=== PATIENT | male | born 1945 | race Caucasian/White ===

== ENCOUNTER 2025-08-30 13:09 | Outpatient (AMB) | payer MEDICARE, SELFPAY ==
--- OUTSIDE RECORDS SUMMARY | 2025-02-14 08:30 | XMS_ITS ---
Author Organization [facility] Address [address] [address] Care Team Providers Care Corporate Webmaster Name Role Phone Gerard Frye Primary Care Provider Unavail MARY Acosta [phone] REASON FOR VISIT Lt foot injection Encounters Encounter Location Date Provider Diagnosis [facility] [address] [address] 02/14/2025 MARY COSTA Plan Of Treatment No Information Progress Notes * Hamilton IRBYDOB:1945 (79 yo M)Acc No.[id number]:02/14/2025 Consult note Patient: Hamilton HANNAH Provider: Racquel Costa DPM :1945 A ge:79 Y S ex:Male Date:02/14/2025 Address:[address] [place] [id number] Pcp:Gerard Frye Subjective: * Chief Complaints: * 1 . Lt foot injection. * Medical History: Objective: * Vitals: Therapeutic Interventions: Assessment: Plan: * Treatment: * Billing Information: * Visit Code: * Procedure Codes: * Electronic signature of BRANDON COSTA D.P.M on 08/30/2025 at 04:56 PM EST Sign off status: Pending * Provider: Racquel Costa DPM Date: 0 02/14/2025 Generated for Printi ng/Faxing/eTransmitting on: 1 10/30/2024 04:56 PM EST
[2025-08-30 13:13] VITALS: BMI 28.4
--- NOTE | 2025-08-30 13:13 | A.PHYSOV_ITS ---
Vital Signs 08/30/25 13:13 Height 5 ft 9 in Weight 192 lb BMI 28.4 Intake Visit Reasons: BACK PAIN Intake Note: Patient is a 79 year old male in office today due to increase low back pain. Allergies Sulfa (Sulfonamide Antibiotics) Allergy (Unknown, Verified 08/30/25 13:12) Unknown sulfamethoxazole (From Bactrim) Allergy (Unknown, Verified 08/30/25 13:12) Unknown trimethoprim (From Bactrim) Allergy (Unknown, Verified 08/30/25 13:12) Unknown HPI Comments Details: History of Present Illness The patient is a 79-year-old individual presenting with chronic lower back pain and lumbar radiculitis. The patient's MRI on April 13, 2024, demonstrated a right paracentral disc extrusion at the L4-L5 level with impingement upon the descending right L5 nerve root, explaining the symptomatic presentation. Bilateral L4 transforaminal injections on August 13, 2024, provided excellent pain relief, and the patient was feeling better at the time of the follow-up visit on January 06, 2025. The patient has not been seen since that visit. Only recently his pain started to return. He would like to repeat his injections before he leaves for [place] for the winter. The patient also received prednisone tapers for occasional pain exacerbations, which were reported to be highly effective. Pain Description - Onset and Timing: Chronic lower back pain with lumbar radiculitis, ongoing since before April 2024. - Quality and Character: Pain associated with right paracentral disc extrusion at L4-L5. - Primary Location: Lower back, radiating to the right L5 nerve root. - Exacerbating Factors: Occasional exacerbations requiring prednisone tapers. - Relieving Factors: Bilateral L4 transforaminal injections provided excellent relief. Results - Imaging: MRI on April 13, 2024, showed right paracentral disc extrusion at L4-L5 with impingement on the right L5 nerve root. [facility] Medical History (Updated 08/30/25 @ 13:31 by Hamilton Khan DO) Spinal stenosis, lumbar region with neurogenic claudication Lumbar radiculitis Lumbar disc herniation Surgical History (Updated 08/30/25 @ 13:15 by Linda Medina MA) Colon cancer (Unknown) History of knee surgery (Unknown) H/O shoulder surgery (Unknown) Social History (Updated 08/30/25 @ 13:16 by Linda Medina MA) Alcohol intake: current Alcohol intake frequency: 0-2 drinks per day Patient Tobacco Use Status: Never used Tobacco Use of substances other than those prescribed or required for medical reasons: No Current occupational status: retired Review of Systems Narrative Review of Systems Lower back pain, bilateral leg pain, denies change in bowel bladder habits, denies fever or chills, denies uncontrolled depression or suicidal ideation Physical Exam Exam Exam: Physical Exam Patient appears to be in no acute distress, appropriately conversant oriented. He was able to ambulates without antalgia. Lumbar extension was restricted. He was able to perform heel walk and toe walk. Dural tension signs were negative. Neurological examination of lower extremities was nonfocal. Patient demonstrated no upper motor neuron signs. Vital Signs: BMI result Body Mass Index 28.4 Assessment & Plan Assessment & Plan (1) Lumbar disc herniation: Code(s): M51.26 - Other intervertebral disc displacement, lumbar region Category: Medical (2) Lumbar radiculitis: Code(s): M54.16 - Radiculopathy, lumbar region Category: Medical (3) Spinal stenosis, lumbar region with neurogenic claudication: Code(s): M48.062 - Spinal stenosis, lumbar region with neurogenic claudication Category: Medical Plan Pain Management - Affect: Not explicitly discussed. - Analgesia: Bilateral L4 transforaminal injections and prednisone tapers for pain management. - Adverse Effects: Not explicitly discussed. - Activities of Daily Living: Not explicitly discussed. - Aberrant Drug Related Behaviors: Not explicitly discussed. Plan Patient was informed and verbally consented to the use of an ambient scribe for clinic note documentation during this visit. 1. Chronic Lower Back Pain The plan is to repeat bilateral L4 transforaminal epidural steroid injections, as they previously provided excellent pain relief. 2. Lumbar Radiculitis The patient will continue with prednisone tapers for occasional exacerbations, as they have been effective in managing symptoms. Discussion Notes We discussed the plan to repeat bilateral L4 transforaminal epidural steroid injections, which had previously provided excellent relief. The patient is aware of the need to continue prednisone tapers for occasional exacerbations. We also reviewed the MRI findings and their implications for the patient's symptoms. Risks and benefits of the procedure were discussed with the patient. Potential alternative measures were also discussed. Patient understands that the procedure is completely elective. Potential side effects associated with injectable medications were discussed. All questions were answered to the patient's satisfaction. Patient Instructions - Follow up with the clinic for scheduling the bilateral L4 transforaminal epidural steroid injections. - Continue using prednisone tapers as needed for pain exacerbations. Coding Level of Care Code Est Pt Level 3 (18187) Complex visit Add On G2211 Diagnoses Lumbar disc herniation M51.26 Lumbar radiculitis M54.16 Spinal stenosis, lumbar region with neurogenic claudication M48.062
--- OUTSIDE RECORDS SUMMARY | 2025-08-30 16:56 | XMS_ITS | Patient Health Record ---
Author Organization [facility] Address [address] [facility] [address] [place] [address] Care Team Providers Care Centerless Grinding Machine Adjuster Name Role Phone Ghanshyamshamika Gerard Primary Care Provider Unavail able MARY PUENTE Unavailable [phone] Allergies Allergen (clinical drug ingredient) Drug/Non Drug Allergy documented on EMR Reaction Allergy Type Onset Date Status sulfamethoxazole / trimethoprim Bactrim Unknown Drug Allergy Active celecoxib Celebrex Unknown Drug Allergy Active Substance with sulfonamide structure and antibacterial mechanism of action (substance) Sulfa Antibiotics Unknown Drug Allergy A ctive Reason For Referral No Information Medications Medication SIG (Take, Route, Frequency, Duration) Notes Start Date End Date Status Aspirin Adult Low Dose 81 MG 1 tablet Orally Once a day Active Clopidogrel Bisulfate 75 MG 1 tablet Orally Once a day Active Tamsulosin HCl 0.4 MG 1 capsule Orally Once a day Active dexAMETHasone (LA) inject 0.5ml into the vein once for 1 dose Active Ondansetron HCl 4 MG 1 tablet Orally q8h PRN nausea; Duration: 10 days 08/07/2020 Active hydrOXYzine Pamoate 25 MG TAKE 1 CAPSULE BY MOUTH EVERY 8 HOURS NEEDED Active Metoprolol Tartrate 25 MG 1 tablet with food Orally Twice a day Active Omeprazole 20 MG 1 capsule 30 minutes before morning meal Orally Once a day Active Rosuvastatin Calcium 20 MG 1 tablet Orally Once a day Active Problems Problem Type SNOMED Code ICD Code Onset Dates Problem Status W/U Status Risk Notes Problem Localized, primary osteoarthritis of the ankle and/or foot (301103068) Primary osteoarthrit is, right ankle and foot (M19.071) Active confirmed Problem Localized, primary osteoarthritis of the ankle and/or foot (157412100) Primary osteoarthrit is, left ankle and foot (M19.072) Active confirmed Problem Acquired hallux rigidus (5619999) Hallux rigidus of right foot (M20.21) Active confirmed Plan Of Treatment Pending Test Test Name Order Date X ray : Foot, right 3v 01/09/2021 DRAIN/INJECT, SMALL JOINT/BURSA 01/10/20 21 DRAIN/INJECT, SMALL JOINT/BURSA 04/26/20 20 DRAIN/INJECT, SMALL JOINT/BURSA 07/10/20 20 Insurance Providers Payer Name Payer Address Payer Phone Subscriber Number Group Number Insured Name Patient Relationship to Insured Coverage Start Date Coverage End Date [facility] [address] [place], [place] [phone] [id number] Hamilton Hudson Self - patient is the insured Medications Administered Medication Instructions Date of Administration Dosage Notes Dexamethasone 07/10/2020 0.5 mL Dexamethasone 01/09/2021 0.5 mL Kenalog 04/26/2020 1 mL Kenalog 07/10/2020 0.5 mL Kenalog 01/09/2021 0.5 mL Medical (General) History Medical History History ICD Code CAD hyperlipidemia GERD BPH erectile dysfunction obstructive sleep apnea alcohol abuse PTSD 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
--- OUTSIDE RECORDS SUMMARY | 2025-08-30 16:56 | XMS_ITS | Patient Health Record ---
Author Organization [facility] Address [address] [place] [address] Care Team Providers Care Retail Client Manager Name Role Phone Ike Pan MD Primary Care Provider Manjit Aguiar Unavailable [phone] Reason For Referral No Information Medications Medication SIG (Take, Route, Frequency, Duration) Notes Start Date End Date Status Omeprazole 20 MG 1 capsule Orally Onc e a day; Duration: 30 day(s) Active Medrol (Diego) 4 MG as directed Orally d ose diego take as directed; Duration: as needed 06/26/2015 Active Clotrimazole-Betamethason e 1-0.05 % APPLY TO AFFECTED AREA TWICE A DAY External; Duration: 30 Not-Taking Lamisil 250 250 MG 1 Tab Oral Daily; Duration: 90 03/15/2013 Not-Taking Ibuprofen 800 MG 1 tablet every Orall y Three times a day; Duration: 30 days 06/23/2014 Not-Taking Simvastatin 20 MG APPLY TO AFFECTED AR EA TWICE A DAY Oral; Duration: 30 Active Social History Tobacco Use: Social History Observation Description Date Details (start date - stop date) Never Smoker NA - NA Tobacco Use/Smoking Question Answer Notes Are you a: nonsmoker Additional Findings: Tobacco Non-User Current no n-smoker Alcohol Screen Question Answer Notes Did you have a drink containing alcohol in the p ast year? Yes Points 0 Interpretation Negative Tobacco use other than smoking: Question Answer Notes Are you an other tobacco user? No Problems Problem Type SNOMED Code ICD Code Onset Dates Problem Status W/U Status Risk Notes Problem Acquired hallux valgus (39499348) Hallux valgus (acquired), right foot (M20.11) Active confirmed Problem Neuralgia (74049811) Neuralgia and neuritis, unspecified (M79.2) Active confirmed Plan Of Treatment Pending Test Test Name Order Date X ray : Foot, left 2V 10/16/2015 *Liver Function Test (LFT) 03/15/2013 X ray : Foot, left 3V 06/15/2014 X ray : Foot, left 3V 03/15/2013 X ray : Foot, right 3V 11/05/2017 92784-Usoy Destruction, -03/14/2014 25049-Bgdy Destruction, -06/15/2014 33094-Paqf Destruction, -12/06/2013 26737-Lszxspbu Plate 03/14/2014 29184-Hjnqkgeg Plate 12/06/2013 17576, A3951-YAHAM/INJECT, JOINT/BURSA 0 06/15/2014 77510, L8281-GBIMK/INJECT, JOINT/BURSA 0 11/05/2017 64158, M8767-RLUUW/INJECT, JOINT/BURSA 0 02/10/2019 43044,N8904-UKN TENDON SHEATH/LIGAMENT 0 10/25/2015 54839, J0702- Neuroma/Injection 06/15/20 14 54754, J0702- Neuroma/Injection 09/07/20 14 77069, J0702- Neuroma/Injection 01/13/20 15 57762, J0702- Neuroma/Injection 06/26/20 15 57943, J0702- Neuroma/Injection 10/11/19 16 Insurance Providers Payer Name Payer Address Payer Phone Subscriber Number Group Number Insured Name Patient Relationship to Insured Coverage Start Date Coverage End Date [employer] [address] [place], [place] [address] [id number] Hamilton Hudson Self - patient is the insured Medical (General) History Medical History History ICD Code chicken pox measles mumps Surgical History Surgery Date(Month/Year) right shoulder surgery 2011 colon surgery 2007 right knee surgery 2012 right knee replacement 08/25/2015 Hospitalization History Reason Date(Month/Year) [facility] admitted for heart a ttack 12/14/2018
--- OUTSIDE RECORDS SUMMARY | 2025-08-30 16:56 | XMS_ITS ---
Author Name [facility] Organization Unknown Care Team Organization Name Specialty Phone Email Start Date End Da te [facility] Gerard Pollock Primary Care 02/10/2023 [facility] Termed, PROVIDER Primary Care 08/13/202205/06
== END 2025-08-30 13:31 | disposition home or self-care (01) ==
LOC: HO.HPHYS 13:09
PROVIDERS: PCP Physician Assistant Medical; Visit Provider Physical Medicine & Rehabilitation
DX: M51.26 Other intervertebral disc displacement, lumbar region (principal); M54.16 Radiculopathy, lumbar region; M48.062 Spinal stenosis, lumbar region with neurogenic claudication
CPT/HCPCS: 99213; G2211

== ENCOUNTER → 2025-08-30 13:09 | Outpatient (BNVA) | payer MEDICARE, SELFPAY | PROVIDERS: PCP Physician Assistant Medical; Visit Provider Physical Medicine & Rehabilitation | DX: M48.062 Spinal stenosis, lumbar region with neurogenic claudication (principal); M51.16 Intervertebral disc disorders with radiculopathy, lumbar region; G89.29 Other chronic pain | CPT/HCPCS: 99212 ==

== ENCOUNTER 2025-09-09 08:02 | Outpatient (REF) | payer MEDICARE, SELFPAY | END 2025-09-09 08:03 | disposition home or self-care (01) | LOC: HO.HPHYSR 08:02 | PROVIDERS: PCP Physician Assistant Medical; Visit Provider Physical Medicine & Rehabilitation | DX: M54.16 Radiculopathy, lumbar region (principal) | CPT/HCPCS: 64483; J2003; J3301; Q9967 ==

== ENCOUNTER 2025-09-09 08:02 | Outpatient (AMB) | payer MEDICARE, SELFPAY ==
--- NOTE | 2025-09-09 08:02 | A.PHYSOV_ITS ---
Vital Signs 09/09/25 08:03 Height 5 ft 9 in Weight 192 lb BMI 28.4 BP 149/84 H Pulse 67 Intake Visit Reasons: Bilateral Lumbar Transforaminal Epidural L4 Intake Note: Patient is a 79 year old male in office today for bilateral L4 transforaminal epidural injection. Allergies Sulfa (Sulfonamide Antibiotics) Allergy (Unknown, Verified 09/09/25 08:02) Unknown sulfamethoxazole (From Bactrim) Allergy (Unknown, Verified 09/09/25 08:02) Unknown trimethoprim (From Bactrim) Allergy (Unknown, Verified 09/09/25 08:02) Unknown [facility] Medical History Spinal stenosis, lumbar region with neurogenic claudication Lumbar radiculitis Lumbar disc herniation Surgical History Colon cancer (Unknown) History of knee surgery (Unknown) H/O shoulder surgery (Unknown) Social History Alcohol intake: current Alcohol intake frequency: 0-2 drinks per day Patient Tobacco Use Status: Never used Tobacco Use of substances other than those prescribed or required for medical reasons: No Current occupational status: retired Physical Exam Vital Signs: Last Vital Signs Pulse 67 09/09/25 08:03 BP 149/84 H 09/09/25 08:03 BMI result Body Mass Index 28.4 Office Procedures Procedure Details: Procedure performed: Bilateral transforaminal epidural steroid injection Preop diagnosis: Lumbar radiculitis Postop diagnosis: The same Anesthesia: Local After informed consent was obtained, patient was placed on the procedure table in a prone position. Skin over lumbosacral area was prepped and draped in usual sterile manner. Right L4 pedicle was visualized utilizing fluoroscopy. 5 inch 22 gauge spinal needle was introduced percutaneously and advanced towards the pedicle at about 6 o'clock position. Once level of neural foramina was reached, needle placement was verified utilizing 3 cc of Omnipaque contrast solution. Excellent flow through the neural foramina and epidural spread was identified without evidence of vascular uptake. Total volume of 6 cc containing 2 cc of 1% lidocaine, 40 mg of triamcinolone and normal saline solution were injected after negative aspiration for blood and cerebrospinal fluid. Identical procedure was repeated on the opposite side. Radiation exposure was documented in the chart. Lumbar transforaminal Epidural Steroid Inj- use with FL Gd: 33637 - Single (Bilateral procedure) Procedure code (CPT) selection complete Office Meds Kenalog 40 mg/mL suspension for injection Performing Provider: Hamilton Khan DO Performing Location: [facility] Administered by: Hamilton Kahn DO on 09/09/25 08:24 Dose Route Admin Location Dispensed Lot Number Expiration Date [facility] Forge Operator Helper 80 mg epidural 2 mL [id number] [employer] Total Dispensed Waste 2 mL 0 % lidocaine (PF) 10 mg/mL (1 %) injection solution Performing Provider: Hamilton Khan DO Performing [facility] Administered by: Hamilton Khan DO on 09/09/25 08:24 Dose Route Admin Location Dispensed Lot Number Expiration Date [facility] Forge Operator Helper 50 mg epidural 5 mL [id number] [place] [employer] Total Dispensed Waste 5 mL 0 % Omnipaque 300 300 mg iodine/mL intravenous solution Performing Provider: Hamilton Khan DO Performing Location: [facility] Administered by: Hamilton Khan DO on 09/09/25 08:24 Dose Route Admin Location Dispensed Lot Number Expiration Date [facility] Forge Operator Helper 3 mL epidural 10 mL [id number] [facility] Total Dispensed Waste 10 mL 70 % Assessment & Plan Assessment & Plan (1) Lumbar radiculitis: Code(s): M54.16 - Radiculopathy, lumbar region Category: Medical Plan: Injection Plan Injection Orders: Orders FL Gd Lumbar Transforaminal In Today M54.16 - Radiculopathy, lumbar region AMB Lumbar transforaminal Epidural Steroid Injection Today M54.16 - Radiculopathy, lumbar region Coding Level of Care Code Procedure Only Diagnoses Lumbar radiculitis M54.16 CPT Codes Lumbar transforaminal Epidural Steroid I - CPT TRANSFORM: 11031 - SingleBilateral procedure ([id number])
[2025-09-09 08:03] VITALS: BP 149/84; PULSE 67; BMI 28.4
--- OUTSIDE RECORDS SUMMARY | 2025-09-09 08:13 | XMS_ITS | Encounter Summary ---
Author Organization [facility] [employer] [facility] Prior to 08/06/2024 Address [address] [place] [address] Care Team Providers Care Maritime Engineer Name Role Phone Jarod Mullins MD Primary Care Provider Tracie Esa Conn MD Primary Care Provider Unavail able Ike Pan MD Primary Care Provider [phone] Adonay Pryor MD Unavailable [phone] Alix Castro PA-C Unavailable Unavailab Gerard Valero PA-C Primary Care Provider [phone] Trish Lawrence DNP Unavailable [phone] Encounter Details Date Type Department Care Team Description 10/28/2013 [facility] Medical Records [address] [place] [address] Von Holder MD Social History Tobacco Use Types Packs/Day Years Used Date Smoking Tobacco: Never Cigars Comments:Only an occasional cigar ,about once q 2 months Alcohol Use Standard Drinks/Week Comments Yes 0 (1 standard drink = 0.6 oz pure alcohol) About 20 beers per week. Advised to cut back particularly as he needs statins Sex Assigned at Date Recorded Not on file Job Start Date Occupation Industry Not on file Not on file Not on file documented as of this encounter Plan of Treatment Not on file documented as of this encounter Procedures Procedure Name Priority Date/Time Associated Diagnosis Comments OUTSIDE HOLTER MONITOR Routine 10/28/2013 documented in this encounter Results * OUTSIDE HOLTER MONITOR (10/28/2013) Provider Default CARDIOLOGY documented in this encounter Visit Diagnoses Not on filedocumented in this encounter Care Teams Maritime Engineer Relationship Specialty Start Date End Date Jarod Mullins MD PCP - General 04/21/07 10/05/14 Esa Burnham MD PCP - General Internal Medicine 02/20/15 07/04/15 Ike Pan MD [address] [place] [address] PCP - General Internal Medicine 07/05/15 03/13/21 Gerard Pollock PA-C [address] [place] [address] PCP - General Internal Medicine 03/14/21 Adonay Pryor MD [address] [facility] [address] [place] [address] Specialist Cardiovascular Disease 03/02/21 Alix Castro PA-C [address] [facility] [address] [place] [address] Cardiology 03/02/21 Trish Lawrence DNP [address] [place] [address] Specialist Cardiology 03/20/21 documented as of this encounter
--- OUTSIDE RECORDS SUMMARY | 2025-09-09 08:14 | XMS_ITS | Encounter Summary ---
Author Organization [facility] Prior to 08/06/2024 Address [address] [place] [address] Care Team Providers Care Mechanical Artist Name Role Phone Jarod Mullins MD Primary Care Provider Tracie Esa Conn MD Primary Care Provider Unavail able Ike Pan MD Primary Care Provider [phone] Adonay Pryor MD Unavailable [phone] Alix Castro PA-C Unavailable Unavailab Gerard Valero PA-C Primary Care Provider [phone] Trish Lawrence DNP Unavailable [phone] Encounter Details Date Type Department Care Team Description 01/29/2012 Digital Content Manager Report Medical Records [address] [place] [address] Jaiden Morataya MD Social History Tobacco Use Types Packs/Day [...] on file documented as of this encounter Visit Diagnoses Not on filedocumented in this encounter Care Teams Mechanical Artist Relationship Specialty Start Date End Date Jarod Mullins MD PCP - General 04/21/07 10/05/14 Esa Burnham MD PCP - General Internal Medicine 02/20/15 07/04/15 Ike Pan MD [address] [place] [address] PCP - General Internal Medicine 07/05/15 03/13/21 Gerard Pollock PA-C [address] [place] [address] PCP - General Internal Medicine 03/14/21 Adonay Pryor MD [address] [address] Specialist Cardiovascular Disease 03/02/21 Alix Castro PA-C [address] [address] Cardiology 03/02/21 Trish Lawrence DNP [address] [place] [address] Specialist Cardiology 03/20/21 documented as of this encounter
--- OUTSIDE RECORDS SUMMARY | 2025-09-09 08:14 | XMS_ITS | Encounter Summary ---
Author Organization [facility] Prior to 08/06/2024 Address [address] [place] [address] Care Team Providers Care Cinema Or Theatre Manager Name Role Phone Jarod Mullins MD Primary Care Provider Tracie Esa Conn MD Primary Care Provider Unavail able Ike Pan MD Primary Care Provider [phone] Adonay Pryor MD Unavailable [phone] Alix Castro PA-C Unavailable Unavailab Gerard Valero PA-C Primary Care Provider [phone] Trish Lawrence DNP Unavailable [phone] Reason for Visit * Reason Onset Date Comments Call From Md Office 02/21/2011 [facility] Encounter Details Date Type Department Care Team Description 02/21/2011 Telephone Adult Medicine [address] [address] Jarod Mullins MD Call From Office ([facility]) Social History Tobacco Use Types Packs/Day Years [...] on file documented as of this encounter Miscellaneous Notes * Telephone Encounter - Ina Martinez - 02/21/2011 2:37 PM EDT Lynda from [facility] called to inform Dr. Mullins that the patient has returned his 30 day cardiac event monitor and therefore they wilkl no longer be with the patient. Pleasecall if you have any questions. documented in this encounter Plan of Treatment Not on file documented as of this encounter Visit Diagnoses Not on filedocumented in this encounter Care Teams Cinema Or Theatre Manager Relationship Specialty Start Date End Date Jarod Mullins MD PCP - General 04/21/07 10/05/14 Esa Burnham MD PCP - General Internal Medicine 02/20/15 07/04/15 Ike Pan MD [address] [place] [address] PCP - General Internal Medicine 07/05/15 03/13/21 Gerard Pollock PA-C [address] [place] [address] PCP - General Internal Medicine 03/14/21 Adonay Pryor MD [address] [address] Specialist Cardiovascular Disease 03/02/21 Alix Castro PA-C [address] [address] Cardiology 03/02/21 Trish Lawrence DNP [address] [place] [address] Specialist Cardiology 03/20/21 documented as of this encounter
--- OUTSIDE RECORDS SUMMARY | 2025-09-09 08:14 | XMS_ITS | Encounter Summary ---
Author Organization [facility] Prior to 08/06/2024 Address [address] [place] [address] Care Team Providers Care Burglar Alarm Installer Name Role Phone Jarod Mullins MD Primary Care Provider Tracie Esa Conn MD Primary Care Provider Unavail able Ike Pan MD Primary Care Provider [phone] Adonay Pryor MD Unavailable [phone] Alix Castro PA-C Unavailable Unavailab Gerard Valero PA-C Primary Care Provider [phone] Trish Lawrence DNP Unavailable [phone] Encounter Details Date Type Department Care Team Description 03/02/2013 Ell Teacher Report Medical Records [address] [place] [address] Jaiden Morataya MD Social History Tobacco Use [...] on filedocumented in this encounter Care Teams Burglar Alarm Installer Relationship Specialty Start Date End Date Jarod Mullins MD PCP - General 04/21/07 10/05/14 Esa Burnham MD PCP - General Internal Medicine 02/20/15 07/04/15 Ike Pan MD [address] [place] [address] PCP - General Internal Medicine 07/05/15 03/13/21 Gerard Pollock PA-C [address] [place] [address] PCP - General Internal Medicine 03/14/21 Adonay Pryor MD [address] [address] Specialist Cardiovascular Disease 03/02/21 Alix Castro PA-C [address] [address] Cardiology 03/02/21 Trish Lawrence DNP [address] [place] [address] Specialist Cardiology 03/20/21 documented as of this encounter
--- OUTSIDE RECORDS SUMMARY | 2025-09-09 08:14 | XMS_ITS | Encounter Summary ---
Author Organization [facility] Prior to 08/06/2024 Address [address] [place] [address] Care Team Providers Care Server Security Administrator Name Role Phone Adonay Pryor MD Unavailable Alix Castro PA-C Unavailable Unavailab Gerard Valero PA-C Primary Care Provider [phone] Trish Lawrence DNP Unavailable [phone] Encounter Details Date Type Department Care Team Description 03/21/2021 Orders Only Medical Records [address] [place] [id number] Isaac Connell MD [address] [place] [address] [id number] Social History Tobacco Use Types Packs/Day Years Used Date Smoking Tobacco: Never Cigars Smokeless Tobacco: Never Comments:Only an occasional cigar ,about once q 2 months Alcohol Use Standard Drinks/Week Comments Yes 0 (1 standard drink = 0.6 oz pur e alcohol) couple days a week Sex Assigned at Date Recorded Not on file Job Start Date Occupation Industry Not on file Not on file Not on file documented as of this encounter Progress Notes * Ramona Connell MD - 04/01/2021 12:03 PM EDT Dear Hamilton,The polyp(s) that were removed during your colonoscopy were precancerous, but benign. Fortunately, we removed them and therefore, they will not cause any more problems in the future. Based on the number, the size, and the features of the polyp(s) removed, I recommend a follow-up colonoscopy in 5 years. Before, the 5 years are due, we will send you a reminder in the mail asking you to contact our office to have the colonoscopy scheduled. I would like to personally thank you for allowing us to take care of you. Please don't hesitate to call us for any questions or concerns. Regards, Von Connell MD Board Certified Gastroenterology and Internal Medicine Transplant Hepatology [facility] documented in this encounter Plan of Treatment Not on file documented as of this encounter Procedures Procedure Name Priority Date/Time Associated Diagnosis Comments OUTSIDE PATHOLOGY Routine 03/19/2021 documented in this encounter Results * OUTSIDE PATHOLOGY (03/19/2021) Isaac Connell MD OUTSIDE LAB documented in this encounter Visit Diagnoses Not on filedocumented in this encounter Care Teams Server Security Administrator Relationship Specialty Start Date End Date Gerard Pollock PA-C [address] [place] [address] PCP - General Internal Medicine 03/14/21 Adonay Pryor MD 300 [facility] [address] [place] [address] Specialist Cardiovascular Disease 03/02/21 Alix Castro PA-C 300 [facility] [address] [place] [address] Cardiology 03/02/21 Trish Lawrence DNP [address] [place] [address] Specialist Cardiology 03/20/21 documented as of this encounter
--- OUTSIDE RECORDS SUMMARY | 2025-09-09 08:14 | XMS_ITS | Encounter Summary ---
Author Organization [facility] Prior to 08/06/2024 Address [address] [place] [address] Care Team Providers Care Payroll Examiner Name Role Phone Ike Pan MD Primary Care Provider [phone] Adonay Pryor MD Unavailable Alix Castro PA-C Unavailable Unavailab Gerard Valero PA-C Primary Care Provider [phone] Trish Lawrence DNP Unavailable [phone] Reason for Visit * Reason Onset Date Comments other 03/12/2021 left shoulder pa in Encounter Details Date Type Department Care Team Description 03/12/2021 Telephone Cardio PVC POC [address] [id number] Adonay Pryor MD 300 [facility] [address] [place], [place] [phone] other (left shoulder pain ) Social History Tobacco Use Types Packs/Day Years [...] encounter Miscellaneous Notes * Telephone Encounter - Trish Lawrence DNP,KATIE - 03/12/2021 12:09 PM EDT Call to pt's daughter. Left shoulder discomfort somewhat reminiscent of his symptoms prior to his SD. Unclear if this is with exertion or with swinging is vague for his daughter. But no shoulder painwith walking. Some SOB on exertion with walking [place] without a golf cart. Apt with me 03/22 7:40 Exercise Stress test ordered but not to be done before his office visit with me. He has decided to stay on his plavix after his colonoscopy. If symptoms stable--ok for colonoscopy as planned. * Telephone Encounter - Janene Guadarrama - 03/12/2021 10:59 AM EDT Pt daughter calling to state pt has been having left shoulder pain when golfing for the last few weeks. The pain is located in shoulder and occurs on/off during the golf game. No pain located in chest, no radiating, no nausea, no sweating. This symptom happened to pt a few years ago when pt had STEMI December 2018. Shoulder pain is not occurring at any other time or with any other activity. Pt ridesstationary bike does have SOB with this activity which is a new symptom. Daughter requesting pt to be seen in office sooner than April Appt. * Telephone Encounter - Narcisa Silveira - 03/12/2021 10:41 AM EDT 03/12/21: CR pt's daug stated that pt has been complaining of left shoulder pain when golfing. Pt's daug Gay can be reached at [phone]. 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 Expected: 03/12/2021, Expires: 03/12/2022 documented as of this encounter Visit Diagnoses Diagnosis 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
--- OUTSIDE RECORDS SUMMARY | 2025-09-09 08:14 | XMS_ITS | Encounter Summary ---
Author Organization [facility] Prior to 08/06/2024 Address [address] [place] [address] Care Team Providers Care Industrial Renderer Name Role Phone Ike Pan MD Primary Care Provider [phone] Adonay Pryor MD Unavailable [phone] Alix Castro PA-C Unavailable Unavailab Gerard Valero PA-C Primary Care Provider [phone] Trish Lawrence DNP Unavailable [phone] Reason for Visit * Reason Onset Date Comments APPOINTMENT 02/09/2021 Encounter Details Date Type Department Care Team Description 02/09/2021 Telephone Gastroenterology [address] [place] [address] Isaac Connell MD [address] [place] [address] [id number] APPOINTMENT Social History Tobacco Use Types Packs/Day Years [...] file Not on file Not on file COVID-19 Exposure Response Date Recorded In the last month, have you been in contact with someone who was confirmed or suspected to have Coronavirus / COVID-19? No / Unsure 02/09/2021 9:59 AM EDT documented as of this encounter Miscellaneous Notes * Telephone Encounter - Kelsey Barrera - 02/09/2021 10:39 AM EDT Patient booked for colon on 03/19, is on blood thinners documented in this encounter Plan of Treatment Not on file documented as of this encounter Visit Diagnoses Not on filedocumented in this encounter Care Teams Industrial Renderer Relationship Specialty Start Date End Date Ike Pan MD [address] [place] [address] PCP - General Internal Medicine 07/05/15 03/13/21 Gerard Pollock PA-C [address] [place] [address] PCP - General Internal Medicine 03/14/21 Adonay Pryor MD [address] [address] Specialist Cardiovascular Disease 03/02/21 Alix Castro PA-C [address] [address] Cardiology 03/02/21 Trish Lawrence DNP [address] [place] [address] Specialist Cardiology 03/20/21 documented as of this encounter
--- OUTSIDE RECORDS SUMMARY | 2025-09-09 08:14 | XMS_ITS | Encounter Summary ---
Author Organization [facility] Prior to 08/06/2024 Address [address] [place] [address] Care Team Providers Care Resistance Machine Welder Setter Name Role Phone Adonay Pryor MD Unavailable [phone] Alix Castro PA-C Unavailable Unavailab Gerard Valero PA-C Primary Care Provider [phone] Trish Lawrence DNP Unavailable [phone] Encounter Details Date Type Department Care Team Description 04/29/2024 Medical Science Liaison Report Medical Records [address] [place] [address] Hamilton Khan DO Social History Tobacco Use Types Packs/Day Years Used Date Smoking Tobacco: Never Cigars Passive Smoke Exposure: Past Smokeless Tobacco: Never Comments:Only an occasional cigar [...] on filedocumented in this encounter Care Teams Resistance Machine Welder Setter Relationship Specialty Start Date End Date Gerard Pollock PA-C [address] [place], [place] [id number] PCP - General Internal Medicine 03/14/21 Adonay Pryor MD [address] [address] Specialist Cardiovascular Disease 03/02/21 Alix Castro PA-C [address] [place] [address] Cardiology 03/02/21 Trish Lawrence, [facility] [address] [place] [address] Specialist Cardiology 03/20/21 documented as of this encounter
--- OUTSIDE RECORDS SUMMARY | 2025-09-09 08:14 | XMS_ITS | Encounter Summary ---
Author Organization [employer] [facility] Prior to 08/06/2024 Address [address] [place] [address] Care Team Providers Care Envelope Patternmaker Name Role Phone Jarod Mullins MD Primary Care Provider Tracie Esa Conn MD Primary Care Provider Unavail able Ike Pan MD Primary Care Provider [phone] Adonay Pryor MD Unavailable [phone] Alix Castro PA-C Unavailable Unavailab Gerard Valero PA-C Primary Care Provider [phone] Trish Lawrence DNP Unavailable [phone] Encounter Details Date Type Department Care Team Description 07/28/2007 Hospital Medical Records [address] [place] [address] Von Mcclendon MD Social History Tobacco Use Types Packs/Day [...] on filedocumented in this encounter Care Teams Envelope Patternmaker Relationship Specialty Start Date End Date Jarod Mullins MD PCP - General 04/21/07 10/05/14 Esa Burnham MD PCP - General Internal Medicine 02/20/15 07/04/15 Ike Pan MD [address] [place] [address] PCP - General Internal Medicine 07/05/15 03/13/21 Gerard Pollock PA-C [address] [place] [address] PCP - General Internal Medicine 03/14/21 Adonay Pryor MD [address] [address] Specialist Cardiovascular Disease 03/02/21 Alix Castro PA-C [address] [address] Cardiology 03/02/21 Trish Lawrence DNP [address] [place] [address] Specialist Cardiology 03/20/21 documented as of this encounter
--- OUTSIDE RECORDS SUMMARY | 2025-09-09 08:14 | XMS_ITS | Encounter Summary ---
Author Organization [facility] Prior to 08/06/2024 Address [address] [place] [address] Care Team Providers Care Business Proposal Rep Name Role Phone Jarod Mullins MD Primary Care Provider Tracie Esa Conn MD Primary Care Provider Unavail able Ike Pan MD Primary Care Provider [phone] Adonay Pryor MD Unavailable [phone] Alix Castro PA-C Unavailable Unavailab Gerard Valero PA-C Primary Care Provider [phone] Trish Lawrence DNP Unavailable [phone] Encounter Details Date Type Department Care Team Description 07/31/2012 Analytical Chemist Report Medical Records [address] [place] [address] Maxwell Haas PA-C Social History Tobacco Use Types Packs/Day Years [...] on filedocumented in this encounter Care Teams Business Proposal Rep Relationship Specialty Start Date End Date Jarod Mullins MD PCP - General 04/21/07 10/05/14 Esa Burnham MD PCP - General Internal Medicine 02/20/15 07/04/15 Ike Pan MD [address] [place] [address] PCP - General Internal Medicine 07/05/15 03/13/21 Gerard Pollock PA-C [address] [place] [address] PCP - General Internal Medicine 03/14/21 Adonay Pryor MD [address] [address] Specialist Cardiovascular Disease 03/02/21 Alix Castro PA-C [address] [address] Cardiology 03/02/21 Trish Lawrence DNP [address] [place] [address] Specialist Cardiology 03/20/21 documented as of this encounter
--- OUTSIDE RECORDS SUMMARY | 2025-09-09 08:14 | XMS_ITS | Clinical Summary ---
Author Organization [facility] Address [address] [place] [address] Phone Care Team Providers Care Field Appraiser Name Role Phone Gerard Pollock Primary Care Provider [phone] Allergies Active Allergy Reactions Criticality Noted Date Comments Celecoxib Itching 08/22/2017 Sulfamethoxazole-Trimethoprim Itching 2016 Medications tamsulosin (FLOMAX) 0.4 mg 24 hr capsule Take 2 capsules (0.8 mg total) by mouth. 3 Active UNABLE TO FIND CPAP Historical (HISTORICAL CPAP) Active omeprazole (PriLOSEC) [address] capsule TAKE 1 CAPSULE BY MOUTH EVERY DAY 90 capsule 3 5 Active rosuvastatin (CRESTOR) 20 mg tablet Take 1 tablet (20 mg total) by mouth 1 (one) time each day. 90 each 3 5 Active clopidogreL (PLAVIX) 75 mg tablet TAKE 1 TABLET BY MOUTH EVERY DAY 90 tablet 1 5 Active metoprolol succinate (TOPROL-XL) 25 mg 24 hr tablet TAKE 1 TABLET BY MOUTH EVERY DAY 90 tablet 1 5 Active ticagrelor (Brilinta) 90 mg tablet Take 1 tablet (90 mg total) by mouth 2 (two) times a day. Active Active Problems Problem Noted Date Diagnosed Date Lipoma of hand 08/23/2024 Varicose veins of both lower extremities with pa in 01/20/2024 Mass of right hand 07/28/2023 Fatty liver 06/04/2022 Assessment & Plan (02/08/2025 1:34 PM EDT): Orders: Lipid panel with reflex to direct LDL; Future Comprehensive metabolic panel; Future Hemoglobin A1c; Future Ambulatory referral to Vascular Surgery; Future Hypertension 03/22/2021 Overview (06/01/2024): Last Assessment & Plan: Patient's blood pressure is well controlled. He should remain on beta-alta therapy given his underlying coronary artery disease. We will clarify the patient's medication list Assessment & Plan (06/30/2025 1:41 PM EDT): Orders: ECG 12 lead Stress echocardiogram (TTE) exercise with PRN contrast, bubble, strain, and 3D order panel; Future Assessment & Plan (02/08/2025 1:34 PM EDT): Orders: Lipid panel with reflex to direct LDL; Future Comprehensive metabolic panel; Future Hemoglobin A1c; Future Ambulatory referral to Vascular Surgery; Future Coronary artery disease invo lving [place] coronary artery of [place] heart without angina pectoris 01/07/2019 Overview (06/01/2024): inferior STEMI in December 2018 while in [place] cardiac catheterization at that time revealing normal left main, small to moderate caliber LAD with 50% and 70% lesion in the mid vessel with FRANCIE-3 flow to the mid vessel, full complement of septal physician coding specialist branches, full complement of small caliber diagonal branches, tortuous nondominant left circumflex, and mid circumflex with a lengthy 50 to 60% narrowing with FRANCIE-3 flow distally. The RCA was totally occluded from the proximal to midportion and it was ballooned and received tandem drug-eluting stents with postdilatation to high atmospheres. nuclear stress test in February 2019 to evaluate for residual ischemia where he was able to exercise for 8 minutes, achieving 89% of his MPHR with no ischemia and normal LVEF Last Assessment & Plan: The patient comes in today for a triage visit given left shoulder discomfort. Is not exertional. He had these exact symptoms 2 years ago at which point he had a negative exercise nuclear stress test to a high MET workload. Prior to developing his shoulder discomfort, he is able to move 2 yards of loam without cardiorespiratory symptoms but did feel shoulder discomfort every time he does his shoveling suggesting MSK etiology. Further, he had a cortisone injection yesterday after evaluation by a shoulder specialist he feels as though he has tendinitis in his shoulder already feels better. At this time, we will defer ischemic evaluation. He plans to see his shoulder specialist in about 3 weeks. He will send me a Ometriat message at that time to update me on how his shoulder is feeling and the plans from the orthopedic team. If this discomfort has not resolved, would recommend an exercise stress echocardiogram to evaluate for ischemia. This would then give 2 different modalities of ischemic evaluation with prior nuclear stress test. The patient understands and agrees. He does know to seek emergency medical attention for any change or progressive symptoms. After the patient left the office, I noticed that his metoprolol has fallen off of his medication list. Ometriat message sent to the patient to clarify his med list. 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 02/06/2018 Arthritis of first metatarso phalangeal (MTP) joint of right foot 02/06/2018 Benign non-nodular prostatic hyperplasia with lower urinary tract symptoms 08/06/2016 Assessment & Plan (02/08/2025 1:34 PM EDT): Orders: Lipid panel with reflex to direct LDL; Future Comprehensive metabolic panel; Future Hemoglobin A1c; Future Ambulatory referral to Vascular Surgery; Future Alcohol abuse 06/21/2016 PTSD (post-traumatic stress disorder) 06/21/2016 Erectile dysfunction 04/29/2013 Decreased hearing 12/19/2011 GERD (gastroesophageal reflux disease) 2 Hyperlipemia 03/25/2008 Overview (06/01/2024): Last Assessment & Plan: LDL improved on intensified statin therapy of Crestor alternating 20 and 30 mg every other day. Continue the same Assessment & Plan (02/08/2025 1:34 PM EDT): Orders: Lipid panel with reflex to direct LDL; Future Comprehensive metabolic panel; Future Hemoglobin A1c; Future Ambulatory referral to Vascular Surgery; Future Encounters Date Type Department Care Team Description 08/02/2025 Results Follow-Up [facility] Cardiology [facility] [address] [place] [address] Suzy Pitts NP 07/26/2025 1:30 PM EDT Ancillary Procedure [facility] [address] [place] [id number] Primary hypertension; Coronary artery disease involving [place] coronary artery of [place] heart with other form of angina pectoris (CMS/HCC V24) 06/30/2025 1:00 PM EDT Office Visit [facility] [address] [place] [address] Adonay Pryor MD Primary hypertension (Primary Dx); Coronary artery disease involving [place] coronary artery of [place] heart with other form of angina pectoris (CMS/HCC V24) from Last 3 Months Immunizations Immunization Administration Dates Next Due Influenza Quadravalent, MDCK , 0.5ml, preservative free (Flucelvax) 6mo and older 07/07/2019 Influenza trivalent, 0.5mL ( Fluad) 65yo and older 07/11/2025 Influenza trivalent, 0.5mL ( Fluzone High-dose) 65yo and older 07/12/2024,07/15/2023,08/13/2022,07/25,07/08/2018,07/14/2017,08/06/2016 ,10/07/2013 Influenza, Unspecified 07/16/2021,07/07/2019 Pfizer Covid-19 Bivalent, Or iginal + Ba.1 (Non-US Trademark COMIRNATY Bivalent) 07/18/2022 [employer] SARS-CoV-2 COVID-19, mRNA, LNP-S, preservative free 07/30/2021 Pneumococcal conjugate 13 va lent (Prevnar 13, PCV13) 2mo and older 12/15/2015 Pneumococcal polysaccharide 23 valent (Pneumovax 23) 2yo and older 10/07/2013 Tdap Tetanus diptheria acell ular pertussis (Boostrix; Adacel) 7yo and older 07/26/2024,10/07/2013 Zoster recombinant (Shingrix ) 19yo and older 08/09/2024 Surgical History Surgery Date Site/Laterality Comments COLONOSCOPY 03/02/2003 PROCEDURE: HISTORICAL COLONOSCOPY; COMMENT: up to cecum, good preparation, hemorrhoids, 5mm polyp removed (Tubular adenoma) COLONOSCOPY 07/03/2007 PROCEDURE: HISTORICAL COLONOSCOPY; COMMENT: Up to cecum, good preparation, small polyp-mid sigmoid (adenocarcinoma intramucosal). Mass distal sigmoid (adenocarcinoma, invasive, moderately differentiated) COLONOSCOPY 01/29/2012 PROCEDURE: HISTORICAL COLONOSCOPY; COMMENT: Hood; normal post-op; [facility] UPPER GASTROINTESTINAL ENDOSCOPY 01/29/2012 PROCEDURE: [facility] UPPER GI ENDOSCOPY PERFORMED; COMMENT: Hood; normal; [facility] OTHER SURGICAL HISTORY 07/28/2007 PROCEDURE: [facility] COLECTOMY PARTIAL W/ANASTOMOSIS; COMMENT: Adenoma sigmoid colon COLONOSCOPY 02/21/2015 PROCEDURE: HISTORICAL COLONOSCOPY; COMMENT: normal post op appearance. OTHER SURGICAL HISTORY 2009 PROCEDURE: HISTORY OTHER; COMMENT: r rotator cuff TOTAL KNEE ARTHROPLASTY 2014 Right PROCEDURE: [facility] ARTHRP KNE CONDYLE&PLATU MEDIAL&LAT COMPARTMENTS; COMMENT: pelon COLONOSCOPY 09/01/2017 PROCEDURE: HISTORICAL COLONOSCOPY; COMMENT: two polyps: Right colon polyp was normal mucosa; left colon polyp was tubular adenoma. Medical History Medical History Date Comments Hyperlipemia 03/25/2008 DX:Hyperlipemia History of malignant neoplasm of colon 07/03/2007 DX:History of malignant neoplasm of colon; COMMENT: small polyp-mid sigmoid (adenocarcinoma intramucosal). Mass distal sigmoid (adenocarcinoma, invasive, moderately differentiated). Possible liver/lung metastasis.Pt underwent resection on 07/28/[address] Mcclendon. GERD (gastroesophageal reflux disease) 12/19/2011 DX:GERD (gastroesophageal reflux disease) Erectile dysfunction 04/29/2013 DX:Erectile dysfunction Decreased hearing 12/19/2011 DX:Decreased h earing Sleep apnea 12/15/2015 DX:Sleep apnea Family History Medical History Relation Name Comments Other: around age of 65 Father not biological father Diabetes Mother CABG Sister 1 Colon cancer Neg Hx Relation Name Status Comments Brother 1 Alive identical twin Brother 2 Alive 1/2 sib Father ? Mother (Age 92) Sister 1 Alive 1/2 sib Sister 2 Alive s/b Social History Tobacco Use Types Packs/Day Years Used Date Smoking Tobacco: Never Smokeless Tobacco: Never Tobacco Cessation:Counseling Given: Not Answered Alcohol Use Standard Drinks/Week Comments Yes 0 (1 standard drink = 0.6 oz pur e alcohol) Sex and Gender Information Value Date Recorded Sex Assigned at Not on file Legal Sex Male 1:45 AM EST Gender Identity Not on file Sexual Orientation Not on file Obstetrics History Last Filed Vital Signs Vital Sign Reading Time Taken Comments Blood Pressure 134/84 06/30/2025 1:05 PM EDT Pulse 55 06/30/2025 1:05 PM EDT Temperature 36.3 C (97.4 F) 02/08/2025 1:06 PM EDT Respiratory Rate 15 02/08/2025 1:06 PM EDT Oxygen Saturation 98% 06/30/2025 1:05 PM EDT Inhaled Oxygen Concentration - - Weight 88.2 kg (194 lb 6.4 oz) 06/30/2025 1:05 P M EDT Height 175.3 cm (5' 9 ) 06/30/2025 1:05 PM EDT Body Mass Index 28.71 06/30/2025 1:05 PM EDT Plan of Treatment Health Maintenance Due Date Last Done Comments Hepatitis A Vaccines (1 of 2 - Risk 2-dose series) 1964 Falls Risk Assessment 09/14/2022 Social Influencers of Health Screening 09/14/2022 COVID-19 Vaccine ( season) 2025 07/30/2021, 01/26/2021, 01/04/2021 Medicare Annual Wellness Visit 02/08/2026 02/08/2025 Hypertension/CHF/CAD Annual BMP Blood Test 02/10/2026 02/10/2025, 01/15/2024 Cholesterol Screening (Lipid Panel) 02/10/2030 02/10/2025, 01/15/2024 Colorectal Cancer Screening: Colonoscopy 03/19/2031 03/19/2021 DTaP,Tdap,and Td Vaccines (3 - Td or Tdap) 07/26/2034 07/26/2024, 10/07/2013 Hepatitis C Screening Completed 10/11/2013 Pneumococcal Vaccine: 50+ Years Completed 12/15/2015, 10/07/2013 Zoster Vaccines Discontinued 08/09/2024 Depression Screening Completed 02/08/2025 Influenza Vaccine Completed 07/11/2025, , 07/12/2024, Additional history exists HIB Vaccines Aged Out No longer eligi ble based on patient's age to complete this topic HPV Vaccines Aged Out No longer eligi ble based on patient's age to complete this topic Hepatitis B Vaccines Aged Out No long er eligible based on patient's age to complete this topic IPV Vaccines Aged Out No longer eligi ble based on patient's age to complete this topic MMR Vaccines Aged Out No longer eligi ble based on patient's age to complete this topic Meningococcal ACWY Vaccine Aged Out N o longer eligible based on patient's age to complete this topic Meningococcal B Vaccine Aged Out No l onger eligible based on patient's age to complete this topic RSV Immunization Adult Patients Discontinued RSV Immunization Patients Under 20 months Aged Out No longer eligible based on patient's age to complete this topic Varicella Vaccines Aged Out No longer eligible based on patient's age to complete this topic Procedures Procedure Name Priority Date/Time Associated Diagnosis Comments STRESS ECHOCARDIOGRAM EXERCISE WITH CONTRAST Routine 07/26/2025 2:32 PM EDT Primary hypertension Coronary artery disease involving [place] coronary artery of [place] heart with other form of angina pectoris (CMS/HCC V24) ECG 12-LEAD Routine 06/30/2025 1:08 PM EDT Primary hypertension COMPREHENSIVE METABOLIC PANEL Routine 02/10/2025 9:12 AM EDT Routine general medical examination at a health care facility Other hyperlipidemia Benign non-nodular prostatic hyperplasia with lower urinary tract symptoms Coronary artery disease involving [place] coronary artery of [place] heart without angina pectoris Fatty liver Primary hypertension Obstructive sleep apnea syndrome Abnormal level of blood mineral Varicose veins of both lower extremities with pain LIPID PANEL WITH REFLEX TO DIRECT LDL Routine 02/10/2025 9:12 AM EDT Routine general medical examination at a health care facility Other hyperlipidemia Benign non-nodular prostatic hyperplasia with lower urinary tract symptoms Coronary artery disease involving [place] coronary artery of [place] heart without angina pectoris Fatty liver Primary hypertension Obstructive sleep apnea syndrome Abnormal level of blood mineral Varicose veins of both lower extremities with pain COLONOSCOPY Routine 03/19/2021 HEPATITIS C SCREENING Routine 10/11/2013 from Last 3 Months or Most Recently Relevant to Health Maintenance Results * STRESS ECHOCARDIOGRAM EXERCISE WITH CONTRAST (07/26/2025 2:32 PM EDT) Target HR 122 bpm CV PACS STRESS Exercise/injec tion duration (min) 5 min CV PACS STRESS Exercise/injec tion duration (sec) 59 sec CV PACS STRESS Estimated workload 7.1 METS CV PACS STRESS Angina Index 0 CV PACS STRESS Baseline HR 67 bpm CV PACS STRESS Peak HR 130 bpm CV PACS STRESS Percent HR 91 % CV PACS STRESS Max HR Percent 90 % CV PA CS STRESS Baseline SBP 118 mmHg CV PACS STRESS Baseline DBP 60 mmHg CV PACS STRESS Peak SBP 172 mmHg CV PACS STRESS Peak DBP 76 mmHg CV PACS STRESS Rate Pressure Product 22,360.0 mmHg*bpm CV PACS STRESS Anatomical Region Laterality Modality Ultrasound Narrative 08/02/2025 9:08 AM EDT Post Stress Impression: The study is negative and shows no echocardiographic evidence of ischemia. Mild basal inferior hypokinesis at rest and stress suggestive of prior infarct or scar. No new wall motion abnormalities appeared at stress (as described below in the wall motion diagram). Stress ECG was normal. Exercise stress test was performed. Patient reported no symptoms during the stress test. Exercise capacity was average. Normal blood pressure response. Atrial and ventricular ectopy noted on stress testing. Left Ventricle Left ventricle cavity size is normal. Systolic function is normal with an ejection fraction of 55-60%. Small basilar inferior hypokinetic regional LV wall motion abnormality. Right Ventricle Systolic function is normal. Study Details Overall the study quality was adequate and technically difficult. Definity contrast was given to enhance imaging. Stress Findings A Dionisio protocol stress test was performed. Overall, the patient's exercise capacity was average. Total stress time was 5 min and 59 sec. The patient experienced no angina during the test. The test was stopped because the patient experienced fatigue. The patient requested the test to be stopped. The patient's hemodynamic response was adequate for diagnosis. Blood pressure demonstrated a normal response. Heart rate demonstrated a normal response. The patient reported no symptoms during the stress test. ECG 79-year-old male with coronary artery disease status post ADDIE to the RCA in 2019 with residual disease, now with dyspnea on exertion; rule out ischemia. Cardiac risk factors include hypertension, hyperlipidemia, obesity, age, and family history. Last dose of Toprol was the morning of the test; no calcium channel blockers or nitrates. Baseline ECG shows sinus rhythm with first-degree AV block. Arrhythmias during stress: premature ventricular contractions (PVCs), increasing in frequency at peak exercise, including occasional couplets. There is no significant ST abnormalities during stress. Arrhythmias during recovery: frequent premature atrial contractions (PACs) including isolated PACs as well as short atrial runs in early recovery; frequent premature ventricular contractions (PVCs) multifocal with occasional couplets noted more frequently in early recovery. The result of the stress ECG was negative for ischemia. Echo Post Stress Left ventricular cavity size decreased from baseline. Left ventricular systolic function improved from baseline. Systolic function is hyperdynamic with an ejection fraction over 70%. No new wall motion abnormalities appeared at stress. Nuclear Measurements The study is negative and shows no echocardiographic evidence of ischemia. Wall Scoring Baseline Score Index: 1.06 The following segments are hypokinetic: basal inferior. All other segments are normal. Wall Scoring Peak Stress Score Index: 1.06 The following segments are hypokinetic: basal inferior. The following segments are hyperkinetic: basal anterior, basal anteroseptal, basal inferoseptal, basal inferolateral, basal anterolateral, mid anterior, mid anteroseptal, mid inferoseptal, mid inferior, mid inferolateral, mid anterolateral, apical anterior, apical septal, apical inferior, apical lateral and apex. Procedure Note Mavis Small NP / Adonay Pryor MD - 08/02/2025 Post Stress Impression: The study is negative and shows noechocardiographic evidence of ischemia. Mild basal inferior hypokinesis atrest and stress suggestive of prior infarct or scar. No new wall motion abnormalities appeared at stress (as described belowin the wall motion diagram). Stress ECG was normal. Exercise stress test was performed. Patient reported no symptoms duringthe stress test. Exercise capacity was average. Normal blood pressureresponse. Atrial and ventricular ectopy noted on stress testing. us Adonay Pryor MD CV ECHO PROCEDURES Final Result * ECG 12 lead (06/30/2025 1:08 PM EDT) Ventricular Rate ECG 55 BPM GEMUSE Atrial Rate 55 BPM GEMUSE P-R Interval 238 ms GEMUSE QRS Duration 96 ms GEMUSE Q-T Interval 404 ms GEMUSE QTc 386 ms GEMUSE P Wave [place] 42 degrees GEMUSE R [place] 31 degrees GEMUSE T [place] 16 degrees GEMUSE ECG Interpretation Sinus bradycardia with 1st degree A-V block Inferior infarct , age undetermined Abnormal ECG When compared with ECG of 25-JUL-2020 09:26, No significant change was found Confirmed by MD Pryor Christopher ([id number]) on 06/30/2025 2:21:00 PM GEMUSE 06/30/2025 1:08 PM EDT 06/30/2025 2:21 PM EDT us Adonay Pryor MD ECG ORDERABLES Final Res ult GEMUSE * (ABNORMAL) Lipid panel with reflex to direct LDL (02/10/2025 9:12 AM EDT) Cholesterol 173 0 - 200 mg/dL LAB CHEMISTRY METHOD 02/10/2025 1:00 PM EDT [facility] Triglycerides 272(H) 0 - 150 mg/dL LAB CHEMISTRY METHOD 02/10/2025 1:00 PM EDT [facility] HDL 42 >=40 mg/dL LAB CHEMISTRY METHOD 02/10/2025 1:00 PM EDT [facility] LDL Calculated 77 0 - 100 mg/dL LAB CHEMISTRY METHOD 02/10/2025 1:00 PM EDT [facility] VLDL Cholesterol [place] 54.4 mg/dL LAB CHEMISTRY METHOD 02/10/2025 1:00 PM [facility] Non HDL Chol. (LDL+VLDL) 131 <145 mg/dL LAB CHEMISTRY METHOD 02/10/2025 1:00 PM [facility] Chol/HDL Ratio 4.1 0.0 - 4.4 LAB CHEMISTRY METHOD 02/10/2025 1:00 PM [facility] Blood Venous blood specimen / Unknown Venipuncture / Unknown 02/10/2025 9:12 AM EDT 02/10/2025 9:12 AM EDT Gerard KEITH LAB BLOOD ORDERABLES Kate vee Result [facility] [address] [place] [address], * (ABNORMAL) Comprehensive metabolic panel (02/10/2025 9:12 AM EDT) Sodium 138 133 - 145 mmol/L LAB CHEMISTRY METHOD 02/10/2025 1:00 PM [facility] Potassium 4.2 3.5 - 5.5 mmol/L LAB CHEMISTRY METHOD 02/10/2025 1:00 PM [facility] Chloride 105 96 - 110 mmol/L LAB CHEMISTRY METHOD 02/10/2025 1:00 PM [facility] CO2 26 21 - 32 mmol/L LAB CHEMISTRY METHOD 02/10/2025 1:00 PM [facility] Anion Gap 7 3 - 11 LAB CHEMISTRY METHOD 02/10/2025 1:00 PM [facility] Glucose 118(H) 70 - 100 mg/dL LAB CHEMISTRY METHOD 02/10/2025 1:00 PM [facility] BUN 14 5 - 25 mg/dL LAB CHEMISTRY METHOD 02/10/2025 1:00 PM [facility] Creatinine 0.93 0.70 - 1.30 mg/dL LAB CHEMISTRY METHOD 02/10/2025 1:00 PM [facility] eGFR 85 >=60 mL/min/1. 73m2 LAB CHEMISTRY METHOD 02/10/2025 1:00 PM [facility] Comment:Calculation based on the Chronic Kidney Disease Epidemiology Collaboration (CKD-EPI) equation refit without adjustment for race. BUN/Creatinine Ratio 15.1 LAB CHEMISTRY METHOD 02/10/2025 1:00 PM [facility] Calcium 9.3 8.5 - 10.5 mg/dL LAB CHEMISTRY METHOD 02/10/2025 1:00 PM [facility] AST (SGOT) 32 10 - 42 unit/L LAB CHEMISTRY METHOD 02/10/2025 1:00 PM [facility] ALT (SGPT) 40 10 - 60 unit/L LAB CHEMISTRY METHOD 02/10/2025 1:00 PM [facility] Alkaline Phosphatase 105 42 - 121 unit/L LAB CHEMISTRY METHOD 02/10/2025 1:00 PM [facility] Total Protein 6.8 6.0 - 8.0 g/dL LAB CHEMISTRY METHOD 02/10/2025 1:00 PM [facility] Albumin 3.8 3.2 - 5.0 g/dL LAB CHEMISTRY METHOD 02/10/2025 1:00 PM [facility] Total Bilirubin 0.7 0.0 - 1.4 mg/dL LAB CHEMISTRY METHOD 02/10/2025 1:00 PM [facility] Blood Venous blood specimen / Unknown Venipuncture / Unknown 02/10/2025 9:12 AM EDT 02/10/2025 9:12 AM EDT us Gerard KEITH LAB BLOOD ORDERABLES Kate l Result [facility] [address] [place] [address], * Colonoscopy (03/19/2021) Colonoscopy no interpretation , abstracted Anatomical Region Laterality Modality Other Historical Provider HEALTH MAINTENANCE Final Result * Hepatitis C Screening (10/11/2013) Pathologist [facility] Hepatitis C Screening abstracted Historical Provider HEALTH MAINTENANCE Final Result from Last 3 Months or Most Recently Relevant to Health Maintenance Insurance [employer] Care Teams Field Appraiser Relationship Specialty Start Date End Date Gerard Pollock PA [address] [place] [id number] PCP - General Internal Medicine 03/14/21
--- OUTSIDE RECORDS SUMMARY | 2025-09-09 08:14 | XMS_ITS | Encounter Summary ---
Author Organization [employer] [facility] Prior to 08/06/2024 Address [address] [place] [address] Care Team Providers Care Recruiting Associate Name Role Phone Ike Pan MD Primary Care Provider [phone] Adonay Pryor MD Unavailable [phone] Alix Castro PA-C Unavailable Unavailab Gerard Valero PA-C Primary Care Provider [phone] Trish Lawrence DNP Unavailable [phone] Encounter Details Date Type Department Care Team Description 07/06/2016 Release of Information Medical Records [address] [place] [address] Abstract, Provider Social History Tobacco Use Types Packs/Day Years [...] on filedocumented in this encounter Care Teams Recruiting Associate Relationship Specialty Start Date End Date Ike Pan MD [address] [place] [address] PCP - General Internal Medicine 07/05/15 03/13/21 Gerard Pollock PA-C [address] [place] [address] PCP - General Internal Medicine 03/14/21 Adonay Pryor MD [address] [address] Specialist Cardiovascular Disease 03/02/21 Alix Castro PA-C [address] [address] Cardiology 03/02/21 Trish Lawrence DNP [address] [place] [address] Specialist Cardiology 03/20/21 documented as of this encounter
--- OUTSIDE RECORDS SUMMARY | 2025-09-09 08:14 | XMS_ITS | Encounter Summary ---
Author Organization [facility] Prior to 08/06/2024 Address [address] [place] [address] Care Team Providers Care City Tax Auditor Name Role Phone Ike Pan MD Primary Care Provider [phone] Adonay Pryor MD Unavailable [phone] Alix Castro PA-C Unavailable Unavailab Gerard Valero PA-C Primary Care Provider [phone] Trish Lawrence DNP Unavailable [phone] Reason for Visit * Reason Onset Date Comments Medication 03/02/2021 Encounter Details Date Type Department Care Team Description 03/02/2021 Refill Gastroenterology [facility] [address] [facility] [address] [place] [address] Isaac Connell MD [address] [place] [address] [phone] Medication Social History Tobacco Use Types Packs/Day Years [...] AM EDT documented as of this encounter Plan of Treatment Not on file documented as of this encounter Visit Diagnoses Not on filedocumented in this encounter Care Teams City Tax Auditor Relationship Specialty Start Date End Date Ike Pan MD [address] [place] [address] PCP - General Internal Medicine 07/05/15 03/13/21 Gerard Pollock PA-C [address] [place] [address] PCP - General Internal Medicine 03/14/21 Adonay Pryor MD [address] [address] Specialist Cardiovascular Disease 03/02/21 Alix Castro PA-C [address] [address] Cardiology 03/02/21 Trish Lawrence DNP 444 [place] [address] Specialist Cardiology 03/20/21 documented as of this encounter
--- OUTSIDE RECORDS SUMMARY | 2025-09-09 08:15 | XMS_ITS | Encounter Summary ---
Author Organization [facility] [facility] Prior to 08/06/2024 Address [address] [place] [address] Care Team Providers Care Lapeler Name Role Phone Ike Pan MD Primary Care Provider [phone] Adonay Pryor MD Unavailable [phone] Alix Castro PA-C Unavailable Unavailab Gerard Valero PA-C Primary Care Provider Trish Lawrence DNP Unavailable Encounter Details Date Type Department Care Team Description 01/09/2021 Host Coordinator Report Medical Records [address] [place] [address] Mavis Costa DPM Social History Tobacco Use Types Packs/Day Years [...] or suspected to have Coronavirus / COVID-19? Unable to assess 01/09/2021 8:14 AM EDT documented as of this encounter Plan of Treatment Not on file documented as of this encounter Visit Diagnoses Not on filedocumented in this encounter Care Teams Lapeler Relationship Specialty Start Date End Date Ike Pan MD 444 [place] [address] PCP - General Internal Medicine 07/05/15 03/13/21 Gerard Pollock PA-C 444 [place] [address] PCP - General Internal Medicine 03/14/21 Adonay Pryor MD [address] [address] Specialist Cardiovascular Disease 03/02/21 Alix Castro PA-C [address] [address] Cardiology 03/02/21 Trish Lawrence DNP 444 [place] [address] Specialist Cardiology 03/20/21 documented as of this encounter
--- OUTSIDE RECORDS SUMMARY | 2025-09-09 08:24 | XMS_ITS | Encounter Summary ---
Author Organization [employer] [facility] Prior to 08/06/2024 Address [address] [place] [address] Care Team Providers Care Senior Technical Recruiter Name Role Phone Adonay Pryor MD Unavailable [phone] Alix Castro PA-C Unavailable Unavailab Gerard Valero PA-C Primary Care Provider [phone] Trish Lawrence DNP Unavailable [phone] Encounter Details Date Type Department Care Team Description 01/26/2024 Hospital Medical Records [address] [place] [address] Hamilton Khan DO Social History Tobacco Use [...] on filedocumented in this encounter Care Teams Senior Technical Recruiter Relationship Specialty Start Date End Date Gerard Pollock PA-C [address] [place], [place] [phone] PCP - General Internal Medicine 03/14/21 Adonay Pryor MD [address] [address] Specialist Cardiovascular Disease 03/02/21 Alix Castro PA-C [address] [place] [address] Cardiology 03/02/21 Trish Lawrence, ANKITA [address] [place] [address] Specialist Cardiology 03/20/21 documented as of this encounter
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
--- OUTSIDE RECORDS SUMMARY | 2025-09-09 08:26 | XMS_ITS | Encounter Summary ---
Author Organization [employer] [facility] Prior to 08/06/2024 Address [address] [place] [address] Care Team Providers Care Printing Bindery Assistant Name Role Phone Ike Pan MD Primary Care Provider [phone] Adonay Pryor MD Unavailable [phone] Alix Castro PA-C Unavailable Unavailab Gerard Valero PA-C Primary Care Provider [phone] Trish Lawrence DNP Unavailable [phone] Reason for Visit * Reason Onset Date Comments refill request 09/04/2017 Encounter Details Date Type Department Care Team Description 09/04/2017 Refill Adult Medicine [address] [phone] Ike Pan MD [address] [place] [address] [phone] refill request Social History Tobacco Use Types Packs/Day Years [...] encounter Miscellaneous Notes * Telephone Encounter - Ly Makikim - 09/04/2017 11:44 AM EST Patient needs to have a 90-day supply as he will be going away to [place] for 2 months. Patient would like script to be: E-PRESCRIBED/FAXED TO PHARMACY WHEN WAS THE PATIENT'S LAST APPOINTMENT IN ADULT MEDICINE? 07/14/17 WHEN WAS THE LAST TIME THE PATIENT SAW THEIR PCP? 11/06/16 Does patient have an upcoming appointment? No-patient refused appointment, will call back to book appointment. Will call make an appointment when he returns from [place] in 2-3 months. (THE MEDICATION REQUESTED IS ON THE MED LIST ABOVE) All of the medications requested were on the CURRENT MEDS list Did you check the Pharmacy information above?: YES Patient wants: 90 -day supply Is this a mail order prescription request ? NO Patients current insurance carrier is: Payor: COUNTS INCLUDE 234 BEDS AT THE [facility] FFS / Plan: HNE MEDICARE PREMIUM $15 [employer]BR[employer] / Product Type: MEDICARE [id number] documented in this encounter Plan of Treatment Not on file documented as of this encounter Visit Diagnoses Diagnosis Pure hypercholesterolemia Gastroesophageal reflux disease without esophagitis Esophageal reflux Decreased urine stream Slowing of urinary stream documented in this encounter Care Teams Printing Bindery Assistant Relationship Specialty Start Date End Date Ike Pan MD [address] [place] [address] PCP - General Internal Medicine 07/05/15 03/13/21 Gerard Pollock PA-C [address] [place] [address] PCP - General Internal Medicine 03/14/21 Adonay Pryro MD [address] [address] Specialist Cardiovascular Disease 03/02/21 Alix Castro PA-C [address] [address] Cardiology 03/02/21 Trish Lawrence, ANKITA [address] [place] [address] Specialist Cardiology 03/20/21 documented as of this encounter
--- OUTSIDE RECORDS SUMMARY | 2025-09-09 08:26 | XMS_ITS | Encounter Summary ---
Author Organization [employer] [facility] Prior to 08/06/2024 Address [address] [place] [address] Care Team Providers Care Director Sales Name Role Phone Adonay Pryor MD Unavailable [phone] Alix Castro PA-C Unavailable Unavailab Gerard Valero PA-C Primary Care Provider [phone] Trish Lawrence DNP Unavailable [phone] Reason for Visit * Reason Onset Date Comments TEST RESULTS 06/27/2021 Encounter Details Date Type Department Care Team Description 06/27/2021 Telephone Cardio PVC [facility] [address] [facility] [address] [place] [address] Adonay Pryor MD [address] [place], [place] [phone] TEST RESULTS Social History Tobacco Use Types Packs/Day Years [...] have Coronavirus / COVID-19? No / Unsure 06/20/2021 1:18 PM EDT documented as of this encounter Miscellaneous Notes * Telephone Encounter - Alix Castro PA-C - 06/27/2021 1:06 PM EDT Spoke to pt in regards to results * Telephone Encounter - Ilda Joshua C.M.A. - 06/27/2021 12:46 PM EDT Looking for Echo results. I also, asked him to contact support line to help view results; since he had trouble seeing it * Telephone Encounter - Aviva Carson - 06/27/2021 11:56 AM EDT 06/27 Hamilton called because he has a notification on my chart that his results are ready, would not share which test results are ready however he would like a call back as my chart is not working. Please call pt [phone] Thank you-[facility] documented in this encounter Plan of Treatment Not on file documented as of this encounter Visit Diagnoses Not on filedocumented in this encounter Care Teams Director Sales Relationship Specialty Start Date End Date Gerard Pollock PA-C [address] [place] [address] PCP - General Internal Medicine 03/14/21 Adonay Pryor MD [address] [address] Specialist Cardiovascular Disease 03/02/21 Alix Castro PA-C [address] [facility] [address] [place] [address] Cardiology 03/02/21 Trish Lawrence DNP [address] [place] [address] Specialist Cardiology 03/20/21 documented as of this encounter
--- OUTSIDE RECORDS SUMMARY | 2025-09-09 08:26 | XMS_ITS | Encounter Summary ---
Author Organization [employer] [facility] Prior to 08/06/2024 Address [address] [place] [address] Care Team Providers Care Conductor Orchestra Name Role Phone Ike Pan MD Primary Care Provider [phone] Adonay Pryor MD Unavailable [phone] Alix Castro PA-C Unavailable Unavailab Gerard Valero PA-C Primary Care Provider [phone] Trish Lawrence DNP Unavailable [phone] Encounter Details Date Type Department Care Team Description 12/19/2015 Business Doc Medical Records [address] [place] [address] Abstract, Provider Social History Tobacco Use Types [...] on filedocumented in this encounter Care Teams Conductor Orchestra Relationship Specialty Start Date End Date Ike Pan MD [address] [place] [address] PCP - General Internal Medicine 07/05/15 03/13/21 Gerard Pollock PA-C [address] [place] [address] PCP - General Internal Medicine 03/14/21 Adonay Pryor MD 300 [facility] 154 [place] [address] Specialist Cardiovascular Disease 03/02/21 Alix Castro PA-C [address] [address] Cardiology 03/02/21 Trish Lawrence DNP 444 [place] [address] Specialist Cardiology 03/20/21 documented as of this encounter
--- OUTSIDE RECORDS SUMMARY | 2025-09-09 08:26 | XMS_ITS | Encounter Summary ---
Author Organization [employer] [facility] Prior to 08/06/2024 Address [address] [place] [address] Care Team Providers Care Button Breaker Name Role Phone Ike Pan MD Primary Care Provider [phone] Adonay Pryor MD Unavailable [phone] Alix Castro PA-C Unavailable Unavailab Gerard Valero PA-C Primary Care Provider + [phone] Trish Lawrence DNP Unavailable [phone] Encounter Details Date Type Department Care Team Description 05/04/2019 Knitted Cloth Examiner Report Medical Records [address] [place] [address] Tom Faulkner NP Social History Tobacco Use Types Packs/Day Years [...] on filedocumented in this encounter Care Teams Button Breaker Relationship Specialty Start Date End Date Ike Pan MD [address] [place] [address] [phone] PCP - General Internal Medicine 07/05/15 03/13/21 Gerard Pollock PA-C [address] [place] [address] PCP - General Internal Medicine 03/14/21 Adonay Pryor MD [address] [address] Specialist Cardiovascular Disease 03/02/21 Alix Castro PA-C 300 [facility] 154 [place] [address] Cardiology 03/02/21 Trish Lawrence DNP [address] [place] [address] Specialist Cardiology 03/20/21 documented as of this encounter
--- OUTSIDE RECORDS SUMMARY | 2025-09-09 08:26 | XMS_ITS | Encounter Summary ---
Author Organization [employer] [facility] Prior to 08/06/2024 Address [address] [place] [address] Care Team Providers Care Patient Relations Specialist Name Role Phone Adonay Pryor MD Unavailable [phone] Alix Castro PA-C Unavailable Unavailab Gerard Valero PA-C Primary Care Provider [phone] Trish Lawrence DNP Unavailable [phone] Encounter Details Date Type Department Care Team Description 01/17/2023 Storage Consultant Report Medical Records [address] [place] [address] Hamilton Khan DO Social History Tobacco Use [...] on filedocumented in this encounter Care Teams Patient Relations Specialist Relationship Specialty Start Date End Date Gerard Pollock PA-C [address] [place], [place] [phone] PCP - General Internal Medicine 03/14/21 Adonay Pryor MD 300 [facility] [address] [place] [address] Specialist Cardiovascular Disease 03/02/21 Alix Castro PA-C [address] [place] [address] Cardiology 03/02/21 Trish Lawrence, [facility] [address] [place] [address] Specialist Cardiology 03/20/21 documented as of this encounter
--- OUTSIDE RECORDS SUMMARY | 2025-09-09 08:26 | XMS_ITS | Encounter Summary ---
Author Organization [facility] Address [address] [place] [address] Care Team Providers Care Health Services Information Specialist Name Role Phone Gerard Pollock Primary Care Provider [phone] Encounter Details Date Type Department Care Team (Late st Contact Info) Description 08/02/2025 Results Follow-Up [facility] 154 300 [facility] 154 [place] [address] Suzy Pitts, CALLY [address] [place] [address] [place] [id number] Social History Tobacco Use Types Packs/Day Years Used Date Smoking Tobacco: Never Smokeless Tobacco: Never Alcohol Use Standard Drinks/Week Comments Yes 0 (1 standard drink = 0.6 oz pur e alcohol) Sex and Gender Information Value Date Recorded Sex Assigned at Not on file Legal Sex Male 1:45 AM EST Gender Identity Not on file Sexual Orientation Not on file documented as of this encounter Plan of Treatment Not on file documented as of this encounter Visit Diagnoses Not on filedocumented in this encounter Additional Health Concerns Assessment Noted Time PHQ-9 Depression Total Score: 0 02/09/20 25 1:13 PM EDT documented as of this encounter Care Teams Health Services Information Specialist Relationship Specialty Start Date End Date Gerard Pollock PA [address] [place] [address] PCP - General Internal Medicine 03/14/21 documented as of this encounter
--- OUTSIDE RECORDS SUMMARY | 2025-09-09 08:26 | XMS_ITS | Encounter Summary ---
Author Organization [facility] Prior to 08/06/2024 Address [address] [place] [address] Care Team Providers Care Office Nurse Name Role Phone Adonay Pryor MD Unavailable [phone] Alix Castro PA-C Unavailable Unavailab Gerard Valero PA-C Primary Care Provider +[phone] Trish Lawrence DNP Unavailable [phone] Encounter Details Date Type Department Care Team Description 07/28/2021 Pt. Non Urgent Medical Question Cardio PVC [facility] [address] [facility] [address] [place] [phone] Alix Catsro PA-C Social History Tobacco Use Types Packs/Day [...] encounter Miscellaneous Notes * Telephone Encounter - Ilda Joshua C.M.A. - 07/30/2021 10:07 AM EDTFrom: Hamilton [place] To: Ayala Castro Sent: 07/28/2021 7:43 AM EDT Subject: Echo Good Morning I can???[facility] seem to [facility] Is there a way it can be sent to my daughter Gay via mail or email? [email or web address] Gay Dietz [address] [facility] [address] [place] [facility] [address] documented in this encounter Plan of Treatment Not on file documented as of this encounter Visit Diagnoses Not on filedocumented in this encounter Care Teams Office Nurse Relationship Specialty Start Date End Date Gerard Pollock PA-C [address] [place] [address] PCP - General Internal Medicine 03/14/21 Adonay Pryor MD [address] [facility] 154 [place] [address] Specialist Cardiovascular Disease 03/02/21 Alix Castro PA-C [address] [facility] 154 [place] [address] Cardiology 03/02/21 Trish Lawrence DNP [address] [place] [address] Specialist Cardiology 03/20/21 documented as of this encounter
--- OUTSIDE RECORDS SUMMARY | 2025-09-09 08:26 | XMS_ITS | Encounter Summary ---
Author Organization [employer] [facility] Prior to 08/06/2024 Address [address] [place] [address] Care Team Providers Care Manager Sql Name Role Phone Ike Pan MD Primary Care Provider [phone] Adonay Pryor MD Unavailable Alix Castro PA-C Unavailable Unavailab Gerard Valero PA-C Primary Care Provider [phone] Trish Lawrence DNP Unavailable [phone] Reason for Visit * Reason Comments E-prescribe Rx Request Encounter Details Date Type Department Care Team Description 12/27/2019 Refill Adult Medicine [address] [address] Ike Pan MD [address] [place] [address] [phone] E-prescribe Rx Request Social History Tobacco Use Types Packs/Day Years [...] encounter Miscellaneous Notes * Telephone Encounter - Nehemias Milligan M.A. - 12/28/2019 12:09 PM EDT Faxed to pharmacy * Telephone Encounter - Salena Nirmala - 12/27/2019 2:10 PM EDT Patient would like script to be: E-PRESCRIBED/FAXED TO PHARMACY WHEN WAS THE PATIENT'S LAST APPOINTMENT IN ADULT MEDICINE? 09/30/19 WHEN WAS THE LAST TIME THE PATIENT SAW THEIR PCP? Same as above Does patient have an upcoming appointment? No-patient refused appointment, will call back to book appointment (THE MEDICATION REQUESTED IS ON THE MED LIST ABOVE) All of the medications requested were on the CURRENT MEDS list Did you check the Pharmacy information above?: YES Patient wants: 30 -day supply Is this a mail order prescription request ? NO If the refill is from a FAXED refill request what is the RX # listed on the fax? N/A Patients current insurance carrier is: Payor: [facility] / Plan: [employer] MEDICARE ADVANTAGE $10/$20/ Product Type: MEDICARE [id number] documented in this encounter Plan of Treatment Not on file documented as of this encounter Visit Diagnoses Diagnosis Decreased urine stream Slowing of urinary stream documented in this encounter Care Teams Manager Sql Relationship Specialty Start Date End Date Ike Pan MD [address] [place] [address] PCP - General Internal Medicine 07/05/15 03/13/21 Gerard Pollock PA-C [address] [place] [address] PCP - General Internal Medicine 03/14/21 Adonay Pryor MD 300 [facility] 154 [place] [address] Specialist Cardiovascular Disease 03/02/21 Alix Castro PA-C 300 [facility] 154 [place] [address] Cardiology 03/02/21 Trish Lawrence, [facility] 444 [place] [address] Specialist Cardiology 03/20/21 documented as of this encounter
--- OUTSIDE RECORDS SUMMARY | 2025-09-09 08:27 | XMS_ITS | Encounter Summary ---
Author Organization [facility] Prior to 08/06/2024 Address [address] [place] [address] Care Team Providers Care Legal Document Assistant Name Role Phone Ike Pan MD Primary Care Provider [phone] Adonay Pryor MD Unavailable [phone] Alix Castro PA-C Unavailable Unavailab Gerard Valero PA-C Primary Care Provider [phone] Trish Lawrence DNP Unavailable [phone] Encounter Details Date Type Department Care Team Description 08/08/2020 Hospital Medical Records [address] [place] [address] Mavis Costa DPM Social History Tobacco Use [...] have Coronavirus / COVID-19? Unable to assess 07/25/2020 10:14 AM ED T documented as of this encounter Plan of Treatment Not on file documented as of this encounter Visit Diagnoses Not on filedocumented in this encounter Care Teams Legal Document Assistant Relationship Specialty Start Date End Date Ike Pan MD [address] [place] [address] PCP - General Internal Medicine 07/05/15 03/13/21 Gerard Pollock PA-C 444 [place] [address] PCP - General Internal Medicine 03/14/21 Adonay Pryor MD [address] [address] Specialist Cardiovascular Disease 03/02/21 Alix Castro PA-C [address] [address] Cardiology 03/02/21 Trish Lawrence DNP 444 [place] [address] Specialist Cardiology 03/20/21 documented as of this encounter
--- OUTSIDE RECORDS SUMMARY | 2025-09-09 08:27 | XMS_ITS | Encounter Summary ---
Author Organization [employer] [facility] Prior to 08/06/2024 Address [address] [place] [address] Care Team Providers Care Office Professionals Name Role Phone Ike Pan MD Primary Care Provider [phone] Adonay Pryor MD Unavailable [phone] Alix Castro PA-C Unavailable Unavailab Gerard Valero PA-C Primary Care Provider [phone] Trish Lawrence DNP Unavailable [phone] Encounter Details Date Type Department Care Team Description 08/27/2015 Hospital Medical Records [address] [place] [address] Usman Mejias PA-C Social History Tobacco Use Types Packs/Day [...] filedocumented in this encounter Care Teams Office Professionals Relationship Specialty Start Date End Date Ike Pan MD 444 [place], [place] [phone] PCP - General Internal Medicine 07/05/15 03/13/21 Gerard Pollock PA-C 444 [place] [address] PCP - General Internal Medicine 03/14/21 Adonay Pryor MD [address] [address] Specialist Cardiovascular Disease 03/02/21 Alix Castro PA-C [address] [address] Cardiology 03/02/21 Trish Lawrence DNP 444 [place] [address] Specialist Cardiology 03/20/21 documented as of this encounter
--- OUTSIDE RECORDS SUMMARY | 2025-09-09 08:27 | XMS_ITS | Encounter Summary ---
Author Organization [employer] [facility] Prior to 08/06/2024 Address [address] [place] [address] Care Team Providers Care Sales Support Representative Name Role Phone Adonay Pryor MD Unavailable [phone] Alix Castro PA-C Unavailable Unavailab Gerard Valero PA-C Primary Care Provider [phone] Trish Lawrence DNP Unavailable [phone] Encounter Details Date Type Department Care Team Description 06/11/2023 Telephone Orthopedics-[address] [id number] Jhon Lincoln PA-C [address] [place] [address] [id number] Social History Tobacco Use Types Packs/Day Years [...] on filedocumented in this encounter Care Teams Sales Support Representative Relationship Specialty Start Date End Date Gerard Pollock PA-C [address] [place] [address] [id number] PCP - General Internal Medicine 03/14/21 Adonay Pryor MD 300 [facility] [address] [place] [address] Specialist Cardiovascular Disease 03/02/21 Alix Castro PA-C 300 [facility] 154 [place] [address] Cardiology 03/02/21 Trish Lawrence, ANKITA [address] [place] [address] Specialist Cardiology 03/20/21 documented as of this encounter
--- OUTSIDE RECORDS SUMMARY | 2025-09-09 08:27 | XMS_ITS | Encounter Summary ---
Author Organization [facility] Prior to 08/06/2024 Address [address] [place] [address] Care Team Providers Care Welding Machine Operator Electron Beam Name Role Phone Ike Pan MD Primary Care Provider [phone] Adonay Pryor MD Unavailable Alix Castro PA-C Unavailable Unavailab Gerard Valero PA-C Primary Care Provider [phone] Trish Lawrence DNP Unavailable [phone] Reason for Visit * Reason Comments E-prescribe Rx Request Encounter Details Date Type Department Care Team Description 01/07/2021 Refill Medical Records [address] [place] [address] Adonay Pryor MD 300 [facility] 154 [place] [address] E-prescribe Rx Request Social History Tobacco Use [...] Telephone Encounter - Ilda Joshua C.M.A. - 01/12/2021 10:54 AM EDT Rx for metoprolol declined; pt already had it renwed by PCP 01/11 documented in this encounter Plan of Treatment Not on file documented as of this encounter Visit Diagnoses Not on filedocumented in this encounter Care Teams Welding Machine Operator Electron Beam Relationship Specialty Start Date End Date Ike Pan MD [address] [place] [address] PCP - General Internal Medicine 07/05/15 03/13/21 Gerard Pollock PA-C 444 [place] [address] PCP - General Internal Medicine 03/14/21 Adonay Pryor MD [address] [address] Specialist Cardiovascular Disease 03/02/21 Alix Castro PA-C [address] [address] Cardiology 03/02/21 Trish Lawrence DNP 444 [place] [address] Specialist Cardiology 03/20/21 documented as of this encounter
--- OUTSIDE RECORDS SUMMARY | 2025-09-09 08:27 | XMS_ITS | Encounter Summary ---
Author Organization [facility] [facility] Prior to 08/06/2024 Address [address] [place] [address] Care Team Providers Care Wood Block Artist Name Role Phone Ike Pan MD Primary Care Provider [phone] Adonay Pryor MD Unavailable [phone] Alix Castro PA-C Unavailable Unavailab Gerard Valero PA-C Primary Care Provider [phone] Trish Lawrence DNP Unavailable [phone] Encounter Details Date Type Department Care Team Description 10/30/2015 Orders Only Medical Records [address] [place] [address] Antelmo Carmen, BRIM POUNCING MACHINE OPERATOR [address] [place] [address] Social History Tobacco Use Types Packs/Day Years [...] Name Priority Date/Time Associated Diagnosis Comments OUTSIDE SLEEP STUDY Routine 10/19/2015 documented in this encounter Results * OUTSIDE SLEEP STUDY (10/19/2015) Carmen Rodriges BRIM POUNCING MACHINE OPERATOR PULMONOLOGY documented in this encounter Visit Diagnoses Not on filedocumented in this encounter Care Teams Wood Block Artist Relationship Specialty Start Date End Date Ike Pan MD 444 [place] [address] PCP - General Internal Medicine 07/05/15 03/13/21 Gerard Pollock PA-C 444 [place] [address] PCP - General Internal Medicine 03/14/21 Adonay Pryor MD [address] [address] Specialist Cardiovascular Disease 03/02/21 Alix Castro PA-C [address] [address] Cardiology 03/02/21 Trish Lawrence DNP 444 [place] [address] Specialist Cardiology 03/20/21 documented as of this encounter
--- OUTSIDE RECORDS SUMMARY | 2025-09-09 08:29 | XMS_ITS | Encounter Summary ---
Author Organization [facility] Prior to 08/06/2024 Address [address] [place] [address] Care Team Providers Care Laboratory Tester Name Role Phone Ike Pan MD Primary Care Provider Adonay Pryor MD Unavailable [phone] Alix Castro PA-C Unavailable Unavailab Gerard Valero PA-C Primary Care Provider [phone] Trish Lawrence DNP Unavailable [phone] Reason for Referral * Non JEFF (Routine) - Closed Specialty Diagnoses / Procedures Referred By Contac t Referred To Contact Cardiology Diagnoses Coronary artery disease involving [place] coronary artery of [place] heart without angina pectoris Procedures REFERRAL TO CARDIOLOGY Ike Pan MD [address] [place] [address] External Cardiology Referral ID Status Reason Start Date Expiration Date V isits Requested Visits Authorized SEE ORDER 12/16/2018 Closed 12/17/2018 1 1 * EXTERNAL (Urgent) - Authorized/Booked Specialty Diagnoses / Procedures Referred By Contac t Referred To Contact Cardiology Diagnoses Coronary artery disease involving [place] coronary artery of [place] heart without angina pectoris Procedures REFERRAL TO CARDIOLOGY Ike Pan MD [address] [place] [address] External Cardiology Referral ID Status Reason Start Date Expiration Date V isits Requested Visits Authorized SEE NOTE Authorized/B ooked 12/16/2018 03/19/2019 1 1 Reason for Visit * Reason Onset Date Comments Inside Sales Territory Manager Feedback 12/16/[address] [facility] [place] Encounter Details Date Type Department Care Team Description 12/16/2018 Telephone Adult Medicine [facility] [address] [place] [address] Ike Pan MD [address] [place] [address] Inside Sales Territory Manager Feedback ([facility] [place]) Social History Tobacco Use Types Packs/Day Years [...] encounter Miscellaneous Notes * Telephone Encounter - Margareth Nolan - 12/23/2018 1:40 PM EDT Was approved by insurance, can see the traffic engineering director in [place] if need be * Telephone Encounter - Yue Watson - 12/23/2018 12:18 PM EDT PT'S DAUGHTER GAY IS STATING DOES NOT NEED THIS OUT OF NETWROK REFERRAL B/C PATIENTS CARDIOLOGISTTERI RAE IN [place] STATES HE CAN WAIT TILL HE SEES DR PAN ON 01/07/19 * Telephone Encounter - Alix Medina - 12/17/2018 11:04 AM EDT Referrals staff is already working on this out of network request. * Telephone Encounter - Ike Pan MD - 12/17/2018 11:02 AM EDT FIRST and LAST NAME of SPECIALIST PATIENT is seeing: Dr. Teri Oliva ?? What sp If YES, when:N/A ?? Have you checked REVIEW or the APPT DESK to see if this referral has already been done or has visits left? YES ?? Is this visit:Initial Visit ?? Address of Specialist:[address] [place] [address] ?? Phone # of Specialist:[phone] ?? Fax #: (if applicable):[phone] ??Received another message regarding this patient's referral. Handling prior authorization for out of area referrals is handled by referral office to the best of my knowledge Therefore I will refer this message back to referrals Please see the previous message regarding the provider in [place] * Telephone Encounter - Alix Medina - 12/17/2018 10:17 AM EDT See order on 12/16/2018 * Telephone Encounter - Alvaro Myles R.N - 12/16/2018 4:21 PM EDT Spoke with pts daughter gay, she states the insurance company [employer] advised needs pcp to fill out an out of network request not referral which can be found on their website [email or web address] under provider forms and document * Telephone Encounter - Margareth Nolan - 12/16/2018 4:16 PM EDT Please review this patients new referral request. The referral has been pended. Please complete thefollowing: If approved> sign order If denied>please give instructions and route to your practice nursing pool. Practice nurse should inform referrals and the patient if denied. * Telephone Encounter - Mavis Waller - 12/16/2018 4:03 PM EDT What insurance does the patient have today? HNE Effective 07/06/09: BCBS will not retro referral requests over 90 days. If request is for this please instruct patient to call the 800# on their insurance card to appeal. Do not submit a request. Referrals cannot be processed if the insurance is not accurate. If the insurance listed above in red is NO BILLING INFORMATION FOUND FOR THIS ENCOUTNER The patients correct insurance must be obtained and registered in [facility] or their referral can not be processed. Is this a retro request? NO. If yes for what date of service do you need the retro referral? N/A Who is calling to request this referral? DaughterGay If the caller is not the patient, what is their name? N/A Ask the patient WHO referred them to this specialty: Patient self referred FIRST and LAST NAME of SPECIALIST PATIENT is seeing: Dr. Teri Oliva What specialty is this? Vault Custodian DIAGNOSIS Patient is being seen for (Not a body part or a procedure): Patient had heart attack, nowhas to follow up with doctor before he can travel back to [place]. Have you seen this SPECIALIST for this PROBLEM/DX before?NO If YES, when:N/A Have you checked REVIEW or the APPT DESK to see if this referral has already been done or has visits left? YES Is this visit:Initial Visit Address of Specialist:[address] [place], [place] [id number] Phone # of Specialist:[phone] Fax #: (if applicable):[phone] Does patient have an appointment scheduled?: NO Date of appointment- (including a retro-request): 2 visits Is this appointment related to: Not MVA, WC or Surgery related documented in this encounter Plan of Treatment Not on file documented as of this encounter Visit Diagnoses Diagnosis Coronary artery disease involving [place] coronary artery of [place] heart without angina pectoris- Primary documented in this encounter Care Teams Laboratory Tester Relationship Specialty Start Date End Date Ike Pan MD [address] [place] [address] PCP - General Internal Medicine 07/05/15 03/13/21 Gerard Pollock PA-C [address] [place] [address] PCP - General Internal Medicine 03/14/21 Adonay Pryor MD [address] [address] Specialist Cardiovascular Disease 03/02/21 Alix Castro PA-C [address] [address] Cardiology 03/02/21 Trish Lawrence DNP [address] [place] [address] Specialist Cardiology 03/20/21 documented as of this encounter
--- OUTSIDE RECORDS SUMMARY | 2025-09-09 08:29 | XMS_ITS | Encounter Summary ---
Author Organization [facility] Prior to 08/06/2024 Address [address] [place] [address] Care Team Providers Care Voice Data Communications Engineer Name Role Phone Adonay Pryor MD Unavailable [phone] Alix Castro PA-C Unavailable Unavailab Gerard Valero PA-C Primary Care Provider [phone] Trish Lawrence DNP Unavailable [phone] Encounter Details Date Type Department Care Team Description 04/30/2022 SCAN Medical Records [address] [place] [address] Magdaleno Betts Social History Tobacco Use Types Packs/Day Years [...] Exposure Response Date Recorded In the last 10 days, have yo u been in contact with someone who was confirmed or suspected to have Coronavirus/COVID-19? No / Unsure 04/26/2022 2:35 PM EDT documented as of this encounter Plan of Treatment Not on file documented as of this encounter Procedures Procedure Name Priority Date/Time Associated Diagnosis Comments OUTSIDE VASCULAR STUDY Routine 04/30/2022 documented in this encounter Results * OUTSIDE VASCULAR STUDY (04/30/2022) Provider Default CARDIOLOGY documented in this encounter Visit Diagnoses Not on filedocumented in this encounter Care Teams Voice Data Communications Engineer Relationship Specialty Start Date End Date Gerard Pollock PA-C 444 [place] [address] PCP - General Internal Medicine 03/14/21 Adonay Pryor MD [address] [place] [address] Specialist Cardiovascular Disease 03/02/21 Alix Castro PA-C [address] [place] [address] Cardiology 03/02/21 Trish Lawrence DNP 444 [place] [address] Specialist Cardiology 03/20/21 documented as of this encounter
--- OUTSIDE RECORDS SUMMARY | 2025-09-09 08:29 | XMS_ITS | Encounter Summary ---
Author Organization [facility] Prior to 08/06/2024 Address [address] [place] [address] Care Team Providers Care Tech Ed Teacher Name Role Phone Adonay Pryor MD Unavailable [phone] Alix Castro PA-C Unavailable Unavailab Gerard Valero PA-C Primary Care Provider [phone] Trish Lawrence DNP Unavailable Reason for Visit * Reason Onset Date Comments Medication 04/25/2023 Encounter Details Date Type Department Care Team Description 04/25/2023 Telephone Cardio PVC POC [address] [place] [address] Trish Lawrence, ANKITA 300 [facility] [place] [address] Medication Social History Tobacco Use Types Packs/Day [...] suspected to have Coronavirus/COVID-19? No / Unsure 04/24/2023 9:21 AM EDT documented as of this encounter Plan of Treatment Not on file documented as of this encounter Visit Diagnoses Not on filedocumented in this encounter Care Teams Tech Ed Teacher Relationship Specialty Start Date End Date Gerard Pollock PA-C [address] [place] [address] PCP - General Internal Medicine 03/14/21 Adonay Pryor MD 300 [facility] 154 [place] [address] Specialist Cardiovascular Disease 03/02/21 Alix Castro PA-C 300 [facility] 154 [place] [address] Cardiology 03/02/21 Trish Lawrence DNP [address] [place] [address] Specialist Cardiology 03/20/21 documented as of this encounter
--- OUTSIDE RECORDS SUMMARY | 2025-09-09 08:29 | XMS_ITS | Encounter Summary ---
Author Organization [facility] [employer] [facility] Prior to 08/06/2024 Address [address] [place] [address] Care Team Providers Care Brim Molder Name Role Phone Ike Pan MD Primary Care Provider [phone] Adonay Pryor MD Unavailable [phone] Alix Castro PA-C Unavailable Unavailab Gerard Valero PA-C Primary Care Provider [phone] Trish Lawrence DNP Unavailable [phone] Reason for Visit * Reason Onset Date Comments Appointment-Internal Referral 02/10/2019 christy farmer Encounter Details Date Type Department Care Team Description 02/10/2019 Telephone Adult Medicine [address] [id number] Ike Pan MD [address] [place] [address] [id number] Appointment-Internal Referral (podiatry ) Social History Tobacco Use Types Packs/Day [...] encounter Miscellaneous Notes * Telephone Encounter - Mehreen Roth - 02/10/2019 10:28 AM EDT This patient is not interested coming to the Podiatry department for a consultation because he received a sooner appointment with another Podriast some where else. Therefore this referral will be closed as of today. documented in this encounter Plan of Treatment Not on file documented as of this encounter Visit Diagnoses Not on filedocumented in this encounter Care Teams Brim Molder Relationship Specialty Start Date End Date Ike Pan MD 444 [place] [address] PCP - General Internal Medicine 07/05/15 03/13/21 Gerard Pollock PA-C 444 [place] [address] PCP - General Internal Medicine 03/14/21 Adonay Pryor MD [address] [address] Specialist Cardiovascular Disease 03/02/21 Alix Castro PA-C [address] [address] Cardiology 03/02/21 Trish Lawrence DNP 444 [place] [address] Specialist Cardiology 03/20/21 documented as of this encounter
--- OUTSIDE RECORDS SUMMARY | 2025-09-09 08:29 | XMS_ITS | Encounter Summary ---
Author Organization [facility] Prior to 08/06/2024 Address [address] [place] [address] Care Team Providers Care Food Processor Name Role Phone Ike Pan MD Primary Care Provider [phone] Adonay Pryor MD Unavailable Alix Castro PA-C Unavailable Unavailab Gerard Valero PA-C Primary Care Provider [phone] Trish Lawrence DNP Unavailable [phone] Reason for Referral * Non JEFF (Routine) - Unable to reach/declined Specialty Diagnoses / Procedures Referred By Doreen ayala Referred To Contact Podiatry Diagnoses Pain of toe, unspecified laterality Procedures REFERRAL TO PODIATRY (IN NETWORK) Ike Pan MD [address] [place] [address] Mavis Costa DPM [address] [place] [address] Referral ID Status Reason Start Date Expiration Date V isits Requested Visits Authorized [id number] Unable to reach/declin ed 02/04/2019 02/04/2020 1 1 Reason for Visit * Reason Onset Date Comments Customer Service Advisor Feedback 02/04/2019 podiatry Encounter Details Date Type Department Care Team Description 02/04/2019 Telephone Adult Medicine [facility] [address] [place] [address] Ike Pan MD [address] [place] [address] Customer Service Advisor Feedback (podiatry) Social History Tobacco Use Types Packs/Day Years [...] Miscellaneous Notes * Telephone Encounter - Alix Pitts - 02/04/2019 3:49 PM EDT Please review this patients new referral request. The referral has been pended. Please complete thefollowing: If approved> sign order If denied>please give instructions and route to your practice nursing pool. Practice nurse should inform referrals and the patient if denied. * Telephone Encounter - Adonay Reaves - 02/04/2019 3:42 PM EDT What insurance does the patient have today? HNE Effective 07/06/09: BS will not retro referral requests over 90 [...] insurance must be obtained and registered in [facility] or their referral can not be processed. Is this a retro request? NO. If yes for what date of service do you need the retro referral? N/A Who is calling to request this referral? Patient If the caller is not the patient, what is their name? N/A Ask the patient WHO referred them to this specialty: Patient self referred FIRST and LAST NAME of SPECIALIST PATIENT is seeing: Dr. Costa What specialty is this? Podiatry DIAGNOSIS Patient is being seen for (Not a body part or a procedure): right foot big toe pain Have you seen this SPECIALIST for this PROBLEM/DX before?YES If YES, when: 07/2018 Have you checked REVIEW or the APPT DESK to see if this referral has already been done or has visits left? YES Is this visit:Follow Up Address of Specialist:[address] [place] [address]. [address] Phone # of Specialist:[phone] Fax #: (if applicable): Does patient have an appointment scheduled?: NO Date of appointment- (including a retro-request): Is this appointment related to: Not MVA, WC or Surgery related documented in this encounter Plan of Treatment Not on file documented as of this encounter Visit Diagnoses Diagnosis Pain of toe, unspecified laterality- Primary documented in this encounter Care Teams Food Processor Relationship Specialty Start Date End Date Ike Pan MD [address] [place] [address] PCP - General Internal Medicine 07/05/15 03/13/21 Gerard Pollock PA-C [address] [place] [address] PCP - General Internal Medicine 03/14/21 Adonay Pryor MD [address] [address] Specialist Cardiovascular Disease 03/02/21 Alix Castro PA-C [address] [address] Cardiology 03/02/21 Trish Lawrence DNP [address] [place] [address] Specialist Cardiology 03/20/21 documented as of this encounter
--- OUTSIDE RECORDS SUMMARY | 2025-09-09 08:29 | XMS_ITS | Encounter Summary ---
Author Organization [facility] Prior to 08/06/2024 Address [address] [place] [address] Care Team Providers Care Endodontic Assistant Name Role Phone Adonay Pryor MD Unavailable [phone] Alix Castro PA-C Unavailable Unavailab Gerard Valero PA-C Primary Care Provider [phone] Trsih Lawrence DNP Unavailable [phone] Encounter Details Date Type Department Care Team Description 07/10/2022 Pt. Non Urgent Medical Question Cardio PVC POC 154 300 [facility] 154 [place], [place] [phone] Adonay Pryor MD 300 [facility] 154 [place], [place] [phone] Social History Tobacco Use Types Packs/Day Years [...] Telephone Encounter - Ilda Joshua C.M.A. - 07/10/2022 9:05 AM EDTFrom: [place] To: Ayan Pryor Sent: 07/10/2022 9:03 AM EDT Subject: Hold Plavix ? Good Morning I am having a steroid injection in my lower back on 07/19. The office recommended I ask you how long to hold plavix for before the procedure. Thank you [place] documented in this encounter Plan of Treatment Not on file documented as of this encounter Visit Diagnoses Not on filedocumented in this encounter Care Teams Endodontic Assistant Relationship Specialty Start Date End Date Gerard Pollock PA-C 444 [place] [address] PCP - General Internal Medicine 03/14/21 Adonay Pryor MD [address] [address] Specialist Cardiovascular Disease 03/02/21 Alix Castro PA-C 300 [facility] 154 [place] [address] Cardiology 03/02/21 Trish Lawrence DNP 444 [place] [address] Specialist Cardiology 03/20/21 documented as of this encounter
--- OUTSIDE RECORDS SUMMARY | 2025-09-09 08:29 | XMS_ITS | Encounter Summary ---
Author Organization [facility] Prior to 08/06/2024 Address [address] [place] [address] Care Team Providers Care Meat Stringer Name Role Phone Adonay Pryor MD Unavailable [phone] Alix Castro PA-C Unavailable Unavailab Gerard Valero PA-C Primary Care Provider [phone] Trish Lawrence DNP Unavailable [phone] Reason for Visit * Reason Comments E-prescribe Rx Request Encounter Details Date Type Department Care Team Description 05/07/2022 Refill Adult Medicine [facility] [address] [place] [address] [phone] Gerard Pollock PA-C [address] [place] [address] [phone] E-prescribe Rx Request Social History Tobacco Use [...] encounter Miscellaneous Notes * Telephone Encounter - Marie Goldman - 05/07/2022 11:28 AM EDT Patient would like script to be: E-PRESCRIBED/FAXED TO PHARMACY WHEN WAS THE PATIENT'S LAST APPOINTMENT IN ADULT MEDICINE? 02/07/22 WHEN WAS THE LAST TIME THE PATIENT SAW THEIR PCP? 06/07/20 Does patient have an upcoming appointment? Yes 08/13/22 (THE MEDICATION REQUESTED IS ON THE MED [...] N/A Patients current insurance carrier is: Payor: [facility] [employer] / Plan: [employer] MEDICARE ADVANTAGE $10/$20/ Product Type: MEDICARE [id number] documented in this encounter Plan of Treatment Not on file documented as of this encounter Visit Diagnoses Diagnosis Other difficulties with micturition documented in this encounter Care Teams Meat Stringer Relationship Specialty Start Date End Date Gerard Pollock PA-C [address] [place] [address] PCP - General Internal Medicine 03/14/21 Adonay Pryor MD [address] [facility] [address] [place] [address] Specialist Cardiovascular Disease 03/02/21 Alix Castro PA-C [address] [facility] [address] [place] [address] Cardiology 03/02/21 Trish Lawrence, ANKITA [address] [place] [address] Specialist Cardiology 03/20/21 documented as of this encounter
--- OUTSIDE RECORDS SUMMARY | 2025-09-09 08:29 | XMS_ITS | Encounter Summary ---
Author Organization [facility] Prior to 08/06/2024 Address [address] [place] [address] Care Team Providers Care Binding Cutter Synthetic Cloth Name Role Phone Adonay Pryor MD Unavailable [phone] Alix Castro PA-C Unavailable Unavailab Gerard Valero PA-C Primary Care Provider [phone] Trish Lawrence DNP Unavailable [phone] Encounter Details Date Type Department Care Team Description 07/15/2022 Final Inspector Report Medical Records [address] [place] [id number] Miroslava Bowman NP Social History Tobacco Use Types Packs/Day [...] on filedocumented in this encounter Care Teams Binding Cutter Synthetic Cloth Relationship Specialty Start Date End Date Gerard Pollock PA-C [address] [place] [address] [id number] PCP - General Internal Medicine 03/14/21 Adonay Pryor MD [address] [facility] [address] [place] [address] Specialist Cardiovascular Disease 03/02/21 Alix Castro PA-C [address] [place] [address] Cardiology 03/02/21 Trish Lawrence, ANKITA [address] [place] [address] Specialist Cardiology 03/20/21 documented as of this encounter
--- OUTSIDE RECORDS SUMMARY | 2025-09-09 08:29 | XMS_ITS | Encounter Summary ---
Author Organization [facility] Prior to 08/06/2024 Address [address] [place] [address] Care Team Providers Care Refractive Surgeon Name Role Phone Adonay Pryor MD Unavailable [phone] Alix Castro PA-C Unavailable Unavailab Gerard Valero PA-C Primary Care Provider [phone] Tirsh Lawrence DNP Unavailable Reason for Visit * Reason Comments E-prescribe Rx Request Encounter Details Date Type Department Care Team Description 10/04/2021 Refill Adult Medicine [facility] [address] [place] [address] [phone] Gerard Pollock PA-C [address] [place] [address] [phone] E-prescribe Rx Request Social History Tobacco Use [...] have Coronavirus / COVID-19? No / Unsure 09/04/2021 8:50 AM EST documented as of this encounter Miscellaneous Notes * Telephone Encounter - Ariane Carmona M.A. - 10/10/2021 10:02 AM EST Lab Results Component Value Date NA 139 09/04/2021 K 4.1 09/04/2021 CO2 31 09/04/2021 CL 104 09/04/2021 BUN 14 09/04/2021 CREAT 0.90 09/04/2021 GLU 111 09/04/2021 CA 8.7 09/04/2021 GFR > 60 09/04/2021 DEMETRI 08/11/21 NOV 02/07/22 * Telephone Encounter - Marie Goldman - 10/10/2021 9:31 AM EST Patient would like script to be: E-PRESCRIBED/FAXED TO PHARMACY WHEN WAS THE PATIENT'S LAST APPOINTMENT IN ADULT MEDICINE? 08/11/21 WHEN WAS THE LAST TIME THE PATIENT SAW THEIR PCP? 06/07/20 Does patient have an upcoming appointment? Yes 02/07/22 (THE MEDICATION REQUESTED IS ON THE MED [...] Patients current insurance carrier is: Payor: [facility] [employer] / Plan: [facility] MEDICARE ADVANTAGE $10/$20/ Product Type: MEDICARE [id number] documented in this encounter Plan of Treatment Not on file documented as of this encounter Visit Diagnoses Not on filedocumented in this encounter Care Teams Refractive Surgeon Relationship Specialty Start Date End Date Gerard Pollock PA-C [address] [place] [address] PCP - General Internal Medicine 03/14/21 Adonay Pryor MD [address] [facility] [address] [place] [address] Specialist Cardiovascular Disease 03/02/21 Alix Castro [facility]-C [facility] [address] [place] [address] Cardiology 03/02/21 Trish Lawrence DNP [address] [place] [address] Specialist Cardiology 03/20/21 documented as of this encounter
== END 2025-09-09 08:45 | disposition home or self-care (01) ==
LOC: HO.HPHYS 08:02
PROVIDERS: PCP Physician Assistant Medical; Visit Provider Physical Medicine & Rehabilitation
DX: M54.16 Radiculopathy, lumbar region (principal)
CPT/HCPCS: 64483